=== PATIENT | male | born 1955 | race Caucasian/White ===

== ENCOUNTER 2020-12-21 16:53 | Emergency (ER) | payer MEDICARE, SELFPAY ==
[2020-12-21 16:58] VITALS: BP 126/77; PULSE 72; RESP 18; TEMP 36.9; O2SAT 87; BMI 58.5
[2020-12-21 17:00] VITALS: O2SAT 96
--- NOTE | 2020-12-21 17:44 | EKG12_ITS ---
Test Reason : Blood Pressure : / mmHG Vent. Rate : 068 BPM Atrial Rate : 077 BPM P-R Int : 000 ms QRS Dur : 086 ms QT Int : 384 ms P-R-T Axes : 000 038 083 degrees QTc Int : 408 ms Ectopic atrial rhythm Abnormal ECG Confirmed by ADALI RANDALL, GAMALIEL ([id number]), image editor BLU BENAVIDEZ ([id number]) on 12/23/2020 9:48:26 AM Referred By: MARC Confirmed By:GAMALIEL BRO MD
[2020-12-21 18:04] LABS: Basophil# 0.07 X10^3/uL; Basophil% 0.6 % (0-1); Eosinophil# 0.17 X10^3/uL; Eosinophils% 1.5 % (0-5); Hematocrit 38.6 % (40-54); Hemoglobin 11.6 g/dL (13.0-16.5); Lymphocyte % 7.1 % (19-41); Mean Corp Hgb Conc 30.1 g/dL (32-36); Mean Corpuscular Hgb 27.5 pg (27.0-32.0); Mean Corpuscular Volume 91.5 fL (80-94); Mean Platelet Vol. 8.7 fl (6.2-12.0); Monocyte# 0.88 X10^3/uL; Monocyte% 7.9 % (0-10); NRBC Flagged by Analyzer 0.3 % (0-5); Neutrophil # 9.03 X10^3/uL (2.7-7.7); Neutrophil % 80.6 % (47-70); Platelet Count 172 K/mm3 (150-450); RBC Distribution Width CV 15.6 % (11.6-14.6); Red Blood Count 4.22 M/mm3 (4.6-6.2); White Blood Count 11.2 K/mm3 (4.4-11.0)
--- NOTE | 2020-12-21 18:13 | CT_ITS ---
STUDY: CT ABDOMEN AND PELVIS WITHOUT CONTRAST REASON FOR EXAM: Male, 65 years old. abd pain RADIATION DOSAGE (If Supplied By Facility): CTDIvol = ( 34.45 ) mGy, DLP = ( 1919.58 ) mGycm TECHNIQUE: Transaxial images were obtained from the dome of the diaphragm to the symphysis pubis without oral contrast, and without intravenous contrast. Sagittal and coronal images were reconstructed. Individualized dose optimization techniques were used for this CT. COMPARISON: None. FINDINGS: Small bilateral pleural effusions. Calcific coronary artery disease. Normal liver. Normal gallbladder and extrahepatic biliary system. Normal spleen. Normal pancreas. Normal bilateral adrenal glands. Double-J ureteral stent present on the right extending from the renal pelvis to the bladder. Mild if any hydronephrosis. Normal left kidney. Normal visualized stomach. Air-fluid levels in the small large bowel. Increased stool throughout the colon. Appendix appears normal. Normal abdominal aorta. Normal inferior vena cava. Borderline nonspecific retroperitoneal lymph nodes are noted measuring up to 13 mm Bladder is decompressed with BYRD catheter. Small amount of free fluid in the pelvis. Fat-containing umbilical hernia. Normal osseous structures. CT/Abdomen/Pelvis without Cont IMPRESSION: Double-J ureteral stent present on the right with mild if any hydronephrosis. No radiodense uroliths. Borderline nonspecific retroperitoneal lymphadenopathy. Ileus. Increased stool. Electronically Signed: Edson Taylor MD at 19:34 EDT , Service support ,
[2020-12-21 18:22] LABS: ALB/GLOB Ratio 0.6 RATIO (0.9-2.4); AST(SGOT) 18 U/L (15-37); Alanine Aminotransfer ALT/SGPT 19 U/L (16-61); Albumin, Serum 2.8 g/dL (3.2-5.0); Alkaline Phosphatase 127 U/L (45-117); Anion Gap 4 (5-15); BUN 35 mg/dL (7-18); BUN/Creat Ratio 14.5 RATIO (10-20); Calcium,Total 7.9 mg/dL (8.5-10.1); Chloride 105 mmol/L (98-107); Creatinine, Serum 2.42 mg/dL (0.70-1.30); EST Glomerular Filtration Rate 29 mL/min (>60); Est Glom Filt Rate - Afr Amer 35 mL/min (>60); Estimated Creatinine Clearance 29.83 ml/min; Globulin 4.4 g/dL (2.2-4.2); Glucose 77 mg/dL (74-106); Lipase 67 U/L (73-393); Potassium 4.8 mmol/L (3.5-5.1); Protein, Total 7.2 g/dL (6.4-8.2); Sodium Level 137 mmol/L (136-145); Troponin-I HS 62.5 pg/mL (3.0-78.5)
[2020-12-21 18:59] LABS: Bacteria 0 SEEN /hpf (None Seen); Mucous, Urine 0 SEEN /hpf (<or=2+); Red Blood Cells-Urine 0 SEEN /hpf (0-5)
--- NOTE | 2020-12-21 19:00 | EDS_ITS ---
HPI HPI - GI History of Present Illness Chief Complaint: Abd Pain Informant: patient Narrative Narrative: Patient is a 65-year-old male with history of chronic O2 dependency, diabetes mellitus, hypertension and hyperlipidemia presenting with abdominal discomfort. Patient states he was admitted to [facility] [place] on Sunday for urinary tract infection, 4 days ago. Patient states he chronically self caths and was not able to self cath. A Carcamo was placed at that time. He was discharged 2 days later on Sunday. He notes was in the hospital he was having some constipation but they were giving him some type of laxative. He notes since he was discharged on Sunday he is not had a bowel movement. He notes he has been passing gas. He states his abdomen feels backed up and bloated. He denies any pain. He does have a history of umbilical hernia but he is never had surgery. He denies any nausea or vomiting. Denies any fever or chills. Is continued to have drainage from his Carcamo catheter. Is on antibiotics he does not recall what they are. No other complaints at this time. Prior similar symptoms: No PFSH PFSH Medical History Anxiety Arthritis COPD (chronic obstructive pulmonary disease) Diabetes Former smoker GERD (gastroesophageal reflux disease) Hyperlipidemia Hypertension Migraines Myocardial infarct On home oxygen therapy Seizures Home Medications diazepam [Valium] 5 mg PO BID 12/21/20 [History Last Taken Unknown] ezetimibe [Zetia] 10 mg PO BID 12/21/20 [History Last Taken Unknown] furosemide [Lasix] 80 mg PO BID 12/21/20 [History Last Taken Unknown] gabapentin [Gralise] 1,800 mg PO BID 12/21/20 [History Last Taken Unknown] insulin glargine U-300 conc [Toujeo Max U-300 SoloStar] 70 unit SUBCUT QHS 12/21/20 [History Last Taken Unknown] insulin lispro [Humalog KwikPen Insulin] See Protocol SUBCUT TID 12/21/20 [History Last Taken Unknown] metoprolol succinate 25 mg PO DAILY 12/21/20 [History Last Taken Unknown] rosuvastatin 20 mg PO QHS 12/21/20 [History Last Taken Unknown] sulfamethoxazole-trimethoprim [Bactrim DS] 1 tab PO DAILY 12/21/20 [History Last Taken Unknown] Allergy/AdvReac Type Severity Reaction Status Date / Time diphenhydramine Allergy Other Verified 12/21/20 16:57 [From Benadryl] Surgical History History of coronary artery stent placement History of total left knee replacement (TKR) Hx of CABG Social History Smoking Status: Former smoker ROS ROS ED Constitutional Constitutional ED: Denies chills or fever(s) ENT ENT ED: Denies rhinorrhea or sore throat Cardiovascular Cardiovascular: Denies chest pain or palpitations Respiratory/Chest Respiratory/Chest: Denies cough or dyspnea Gastrointestinal Gastrointestinal: Reports abdominal pain and constipation; Denies nausea or vomiting Genitourinary Genitourinary ED: Reports other Details: Carcamo catheter in place ; Denies dysuria or hematuria Musculoskeletal Musculoskeletal: Denies arthralgias or myalgias Integumentary Denies rash Neurologic Neurologic: Denies headache(s) or weakness Psychiatric Psychiatric: Denies anxiety or depression EXAM Physical Exam Const Vital Signs: 12/21/20 16:58 12/21/20 17:00 12/21/20 20:57 Temperature 98.4 F Temperature Source Temporal Pulse Rate 72 90 Respiratory Rate 18 23 H Blood Pressure 126/77 H 146/72 H Blood Pressure Mean 93 Pulse Ox 87 96 95 Oxygen Delivery Method Room Air Nasal Cannula Oxygen Flow Rate (L/min) 3 Positive well nourished, well developed and obese General Appearance ED: well developed Nutritional Appearance: obese HEENT Reports moist mucous membranes normocephalic and atraumatic Eyes PERRL and EOMs intact bilaterally Neck supple and no JVD Resp normal respiratory effort and clear to auscultation bilaterally Cardio regular rate, regular rhythm and no murmurs GI GI Narrative: Protuberant abdomen Auscultation: hypoactive bowel sounds Palpation: soft and hernia umbilical (Soft, easily reducible, nontender, no overriding erythema); Negative for tender, guarding or rigid Back/Spine no CVA tenderness Extremity full ROM General Extremety ED: Negative for edema or tenderness General Extremity: Negative for edema Neuro moves all extremities Sensorium / Orientation: alert Psych mental status grossly normal and thought process normal Skin no wounds Rashes: no rashes MDM MDM MDM Narrative Medical decision making narrative: Patient is evaluated for abdominal discomfort and constipation. He appears nontoxic and in no acute distress. He is hemodynamically stable. Patient was just discharged from [facility] [place] for acute kidney injury secondary to acute urinary retention. A Carcamo catheter was placed at this time and patient is currently on Bactrim. Chart review shows the patient was discharged with a creatinine of 2.3. Patient is continue to have drainage from his Carcamo catheter is not having any significant pain. Patient is a very mild leukocytosis of 11.2. No other significant laboratory abnormalities. His urinalysis does show 500 leukoesterase and 5-10 white blood cells however no bacteria. I suspect this is residual from his recent UTI. I do not think his abdominal discomfort is any type of referred cardiac pain. His high sensitive troponin is in the normal range for age and is not have any acute EKG changes. CT of the abdomen pelvis obtained to rule out obstruction. This is consistent with an ileus. Patient does not have any abdominal pain, nausea or vomiting I think this can be treated conservatively at home. He is counseled on clear liquid diet as well as bowel rest and outpatient follow-up. He is given referral to Dr. Gar, surgery on-call. Patient is given very strict return precautions including nausea, vomiting, fever, worsening abdominal pain or if he does not have passage of flatus or bowel movement in the next few days. CT does show patient has a ureteral stent in place. He is encouraged to follow-up with his urologist for this. Lab Data Labs: Laboratory Results - last 24 hr 12/21/20 12/21/20 12/21/20 18:00 18:00 18:54 WBC 11.2 H RBC 4.22 L Hgb 11.6 L Hct 38.6 L MCV 91.5 MCH 27.5 MCHC 30.1 L RDW Std Deviation 52.0 H RDW Coeff of Samuel 15.6 H Plt Count 172 MPV 8.7 Immature Gran % (Auto) 2.300 H Neut % (Auto) 80.6 H Lymph % (Auto) 7.1 L Cannon % (Auto) 7.9 Eos % (Auto) 1.5 Baso % (Auto) 0.6 Absolute Neuts (auto) 9.0 H Absolute Lymphs (auto) 0.80 L Nucleated RBC % 0.3 Sodium 137 Potassium 4.8 Chloride 105 Carbon Dioxide 28.0 Anion Gap 4 L BUN 35 H Creatinine 2.42 H Estim Creat Clear Calc 29.83 Est GFR (MDRD) Af Amer 35 L Est GFR (MDRD) Non-Af 29 L BUN/Creatinine Ratio 14.5 Glucose 77 Calcium 7.9 L Total Bilirubin 0.30 AST 18 ALT 19 Alkaline Phosphatase 127 H Troponin I High Sens 62.5 Total Protein 7.2 Albumin 2.8 L Globulin 4.4 H Albumin/Globulin Ratio 0.6 L Lipase 67 L Urine Color Yellow Urine Clarity Clear Urine pH 6.0 Ur Specific [place] 1.010 Urine Protein 30 H Urine Glucose (UA) Normal Urine Ketones Negative Urine Occult Blood 150 H Urine Nitrite Negative Urine Bilirubin Negative Urine Urobilinogen Normal Ur Leukocyte Esterase 500 H Urine RBC 0 SEEN Urine WBC 5-10 SEEN Ur Squamous Epith Cells 0-5 SEEN Urine Bacteria 0 SEEN Urine Mucus 0 SEEN Radiography Diagnostic Testing: Radiology Impression Abdomen/Pelvis CT 12/21/20 18:13 IMPRESSION: Double-J ureteral stent present on the right with mild if any hydronephrosis. No radiodense uroliths. Borderline nonspecific retroperitoneal lymphadenopathy. Ileus. Increased stool. Electronically Signed: Edson Taylor MD at 19:34 EDT , Service support , Rhythm Strip Rhythm Strip: Sinus Rhythm Rate: 68 Ectopy: None EKG Initial EKG: Attestation: I personally reviewed and interpreted this EKG as follows: Comments: Sinus rhythm rate of 68 with prolonged FL interval Normal axis Normal QRS and QTc Normal ST segments Discharge Plan Triage Chief Complaint: Abd Pain ED Provider: Geraldine Charles Dx/Rx/DC Orders Clinical Impression: Ileus Instructions: Ileus, ED Clear Liquid Diet Prescriptions: No Action sulfamethoxazole-trimethoprim [Bactrim DS] 800-160 mg tablet 1 tab PO DAILY RF: 0 furosemide [Lasix] 80 mg tablet 80 mg PO BID RF: 0 metoprolol succinate 25 mg tablet extended release 24 hr 25 mg PO DAILY RF: 0 diazepam [Valium] 5 mg tablet 5 mg PO BID RF: 0 insulin lispro [Humalog KwikPen Insulin] 100 unit/mL insulin pen See Protocol unit SUBCUT TID RF: 0 ezetimibe [Zetia] 10 mg tablet 10 mg PO BID RF: 0 rosuvastatin 20 mg tablet 20 mg PO QHS RF: 0 Gralise 600 mg tablet extended release 24 hr 1,800 mg PO BID RF: 0 Toujeo Max U-300 SoloStar 300 unit/mL (3 mL) insulin pen 70 unit SUBCUT QHS RF: 0 Primary Care Provider: Dylon Correa Referrals: Jeff Gar MD [STAFF PHYSICIAN] - Dylon Correa MD [Primary Care Provider] - Activity Restrictions/Additional Instructions: Your bowels are moving slowly which is what is causing you to be constipated. You need to rest them by eating less and only eating clear liquids. If you have not started passing gas in the next few days or having bowel movements please return to the emergency room. If you develop any vomiting please return to the emergency room. You have stents in your bladder/kidney that need to be evaluated by your urologist. Disposition Disposition: Home, Self Care Discharge Date/Time: 12/21/20 20:58
[2020-12-21 19:01] LABS: Color, Urine Yellow (Yellow); Glucose, Dipstick Normal (Normal); Ketone-Dipstick Negative (Negative); Leukocyte Esterase-Dipstick 500 /ul (Negative); Nitrite-Dipstick Negative (Negative); Occult Blood-Urine 150 /ul (Negative); Protein-Dipstick 30 mg/dl (Negative); Urine Bilirubin Dipstick Negative (Negative); Urine Clarity Clear (Clear); Urine Urobilinogen Normal (Normal)
[2020-12-21 19:41] LABS: White Blood Cells 5-10 SEEN /hpf (0-5)
[2020-12-21 19:42] LABS: Squamous Epithelial Cells - UA 0-5 SEEN /hpf (0-5)
[2020-12-21 20:57] VITALS: BP 146/72; PULSE 90; RESP 23; O2SAT 95
== END 2020-12-21 20:58 | disposition home or self-care (01) ==
PROVIDERS: Emergency Provider Emergency Medicine; PCP Family Medicine
DX: K56.7 Ileus, unspecified (principal); N39.0 Urinary tract infection, site not specified; E11.9 Type 2 diabetes mellitus without complications; J44.9 Chronic obstructive pulmonary disease, unspecified; I10 Essential (primary) hypertension; E78.5 Hyperlipidemia, unspecified; R56.9 Unspecified convulsions; M19.90 Unspecified osteoarthritis, unspecified site; K21.9 Gastro-esophageal reflux disease without esophagitis; F41.9 Anxiety disorder, unspecified; Z99.81 Dependence on supplemental oxygen; Z79.4 Long term (current) use of insulin; Z79.899 Other long term (current) drug therapy; I25.2 Old myocardial infarction; Z87.891 Personal history of nicotine dependence; Z95.1 Presence of aortocoronary bypass graft; Z95.5 Presence of coronary angioplasty implant and graft
CPT/HCPCS: 74176; 80053; 81001; 83690; 84484; 85025; 93005; 99283; A4216

== ENCOUNTER → 2021-02-04 15:24 | Outpatient (CLI) | payer MEDICARE, SELFPAY ==
--- NOTE | 2021-02-04 16:00 | MRI_ITS ---
STUDY: MRI BRAIN WITH AND WITHOUT CONTRAST REASON FOR EXAM: Male, 65 years old. Asymmetric hearing loss TECHNIQUE: Standardized multiplanar fat and water weighted pulse sequences were obtained. IV 30 cc DOTAREM was administered for the contrast portion of the examination. 3D FIESTA, thin slice T2 weighted images through the internal auditory canals are created. Coronal T2-weighted images through the internal auditory canals are created. Additional postcontrast enhanced smaller [id number] axial and coronal images through the internal auditory canals is also created. COMPARISON: Prior brain MRI dated 07/12/2015 FINDINGS: T2-weighted images of the entire brain show a few, scattered periventricular white matter areas of slightly T2 signal. There is no associated restricted diffusion. Ventricles and CSF spaces are symmetric and normal in size without midline shift or mass effect. There are normal T2 flow voids in the major intracranial vessels. Sagittal T1 images show normal midline anatomy. High-resolution T2-weighted images through the internal auditory canal show no abnormal thickening of the 7th and 8th cranial nerves. Bilateral trigeminal nerves are normal in appearance. There is no cerebellar pontine angle mass lesion. Post contrast enhanced images show no abnormal enhancement within the internal auditory canals. The semicircular canals and cochlea are normal in appearance. Large [id number], postcontrast enhanced images of the entire brain show no disruption of the blood brain barrier. There is no abnormal leptomeningeal enhancement. Paranasal sinuses and mastoid air cells are normally aerated without fluid signal. Intracranial soft tissues included in the field of view including the orbits are within normal limits. MRI/Brain W/WO Contrast IMPRESSION: Normal MRI internal auditory canals. Scattered T2 and FLAIR bright periventricular white matter lesions unchanged compared to prior exam likely representing chronic small vessel ischemic changes. Electronically Signed: Lex Huff DO at 22:27 EDT Tel , Service support ,
[2021-02-04 16:06] LABS: CREATININE FINGERSTICK 2.2 mg/dL (0.70-1.30)
== END ==
PROVIDERS: PCP Family Medicine; Referring Provider Otolaryngology; Visit Provider Otolaryngology
DX: Z01.812 Encounter for preprocedural laboratory examination (principal); H91.90 Unspecified hearing loss, unspecified ear
CPT/HCPCS: 70553; A9575

== ENCOUNTER 2022-10-05 18:32 | Outpatient (RCR) | payer MEDICARE, SELFPAY ==
[2022-10-05 18:41] LABS: Color, Urine Yellow (Yellow); Glucose, Dipstick Normal (Normal); Ketone-Dipstick 5 mg/dl (Negative); Leukocyte Esterase-Dipstick 500 /ul (Negative); Nitrite-Dipstick Negative (Negative); Occult Blood-Urine 250 /ul (Negative); Protein-Dipstick 100 mg/dl (Negative); Urine Bilirubin Dipstick Negative (Negative); Urine Clarity Cloudy (Clear); Urine Urobilinogen 1 mg/dl (Normal)
== END 2022-10-25 23:59 ==
LOC: HHLAB 18:32
PROVIDERS: PCP Family Medicine
DX: Z00.00 Encounter for general adult medical examination without abnormal findings (principal)
CPT/HCPCS: 81002; 87077; 87086; 87088; 87186

== ENCOUNTER 2024-09-08 15:22 | Inpatient (IN) | payer MEDICARE, MEDICAID, SELFPAY ==
[2024-09-08] VITALS (10 sets, daily range): BP systolic 90–125; BP diastolic 53–83; PULSE 110–122; RESP 14–20; TEMP 37.2–38.1; O2SAT 91–100; BMI 49.4; BMI 48.5
--- NOTE | 2024-09-08 15:31 | EX.ED.DYSGE1 ---
HPI History of Present Illness Chief Complaint: Seizure Informant: patient and SNF Onset/Context/Timing Onset: Today Context: Sudden Onset Timing: Continuous Quality: Shaking, twitching Location: Bilateral hands Worsened by: Nothing Relieved by: Nothing Narrative Narrative: Patient presents with a seizure-like activity that occurred today. [facility] where they noted he had generalized shaking and seizure-like activity. They reported that after the seizure-like activity stopped, he started having twitching of his hands. Patient was still somewhat confused on examination. Patient is oriented to person and place. Patient is confused on the year and month. Patient denies any fevers or chills. Patient denies any headaches. [facility] Medical History (Updated 09/08/24 @ 19:[address] Stanislaw Mohamud, DO) KARLA treated with BiPAP A-fib Hypothyroid Epilepsy CHF (congestive heart failure) Metabolic encephalopathy Kidney failure Kidney disease Anxiety Diabetes Arthritis GERD (gastroesophageal reflux disease) Former smoker On home oxygen therapy COPD (chronic obstructive pulmonary disease) Myocardial infarct Hyperlipidemia Hypertension Migraines Seizures Home Medications ?Medication ?Instructions ?Recorded ?Last Taken ?Type ezetimibe 10 mg tablet (Zetia) 10 mg PO BID 12/21/20 Unknown History furosemide 80 mg tablet (Lasix) 80 mg PO BID 12/21/20 Unknown History insulin glargine U-300 conc 300 100 unit subcut QHS 12/21/20 Unknown History unit/mL (3 mL) subcutaneous pen (Toujeo Max U-300 SoloStar) insulin lispro 100 unit/mL See Protocol subcut TID 12/21/20 Unknown History subcutaneous pen (Humalog KwikPen (U-100) Insulin) metoprolol succinate 25 mg 25 mg PO DAILY 12/21/20 Unknown History tablet,extended release 24 hr atorvastatin 40 mg tablet 40 mg PO QHS 09/08/24 Unknown History cholecalciferol (vitamin D3) 125 125 mcg PO QWEEK 09/08/24 Unknown History mcg (5,000 unit) tablet (Vitamin D3) duloxetine 60 mg capsule,delayed 60 mg PO DAILY 09/08/24 Unknown History release (Cymbalta) exenatide microspheres 2 mg/0.85 2 mg subcut .q wed 09/08/24 Unknown History mL subcutaneous auto-injector (Meryl Wallis) gabapentin 300 mg capsule 900 mg PO BID 09/08/24 Unknown History hydrocodone-acetaminophen 5-325mg 1 tab PO Q6H PRN pain 09/08/24 Unknown History 5mg-325mg levothyroxine 25 mcg tablet 25 mcg PO DAILY 09/08/24 Unknown History lorazepam 0.5 mg tablet (Ativan) 0.5 mg PO Q6H PRN anxiety 09/08/24 Unknown History lubiprostone 8 mcg capsule 8 mcg PO DAILY 09/08/24 Unknown History (Amitiza) metoprolol succinate 100 mg 100 mg PO BID 09/08/24 Unknown History tablet,extended release 24 hr midodrine 5 mg tablet 5 mg PO TID 09/08/24 Unknown History pantoprazole 40 mg tablet,delayed 40 mg PO DAILY 09/08/24 Unknown History release polyethylene glycol 3350 17 17 g PO DAILY 09/08/24 Unknown History gram/dose oral powder (Miralax) tramadol 50 mg tablet 50 mg PO Q8H PRN pain 09/08/24 Unknown History trazodone 150 mg tablet 75 mg PO QHS 09/08/24 Unknown History Allergy/AdvReac Type Severity Reaction Status Date / Time diphenhydramine (From Allergy Other Verified 09/08/24 15:25 Benadryl) Family History Father Diabetes Son Leukemia Mother Cancer Surgical History History of total left knee replacement (TKR) History of coronary artery stent placement Hx of CABG Social History household members: none housing: [facility] Smoking Status: Former smoker alcohol intake: current alcohol intake frequency: holidays/special occasions only substance use type: does not use ROS ROS ED Constitutional Constitutional ED: Denies chills or fever(s) Eyes Eyes: Denies blurry vision or change in vision ENT ENT ED: Denies rhinorrhea or sore throat Cardiovascular Cardiovascular: Denies chest pain or palpitations Respiratory/Chest Respiratory/Chest: Denies cough or dyspnea Gastrointestinal Gastrointestinal: Denies nausea or vomiting Genitourinary Genitourinary ED: Denies dysuria or hematuria Musculoskeletal Musculoskeletal: Denies back pain or neck pain Integumentary Denies abscess or rash Neurologic Neurologic: Denies headache(s) or weakness Allergic/Immunologic Allergic/Immunologic ED: Denies mouth swelling or urticaria EXAM Physical Exam Const Vital Signs: 09/08/24 15:25 09/08/24 15:30 09/08/24 15:52 Temperature 99.4 F H 99.2 F H Temperature Source Oral Oral Pulse Rate 117 H 118 H Respiratory Rate 20 H 20 H Blood Pressure 97/57 L 90/58 L Blood Pressure Mean 70 68 Pulse Ox 98 100 100 Oxygen Delivery Method Room Air Nasal Cannula Nasal Cannula Oxygen Flow Rate (L/min) 2 2 09/08/24 16:30 09/08/24 17:00 09/08/24 18:00 Temperature 99.5 F H 100.5 F H 99.9 F H Temperature Source Oral Oral Oral Pulse Rate 112 H 122 H 110 H Respiratory Rate 20 H 17 18 Blood Pressure 104/68 115/67 108/83 H Blood Pressure Mean 80 83 91 Pulse Ox 100 100 100 Oxygen Delivery Method Nasal Cannula Room Air Room Air Oxygen Flow Rate (L/min) 2 09/08/24 19:03 09/08/24 19:16 Temperature 100.1 F H 100.1 F H Temperature Source Oral Pulse Rate 114 H 115 H Respiratory Rate 14 16 Blood Pressure 103/71 107/76 Blood Pressure Mean 81 86 Pulse Ox 91 99 Oxygen Delivery Method Nasal Cannula Oxygen Flow Rate (L/min) 2 Positive well nourished and well developed General Appearance ED: well developed and NAD HEENT Reports moist mucous membranes Neck supple and no JVD Resp normal respiratory effort and clear to auscultation bilaterally Cardio Rate: tachycardic Rhythm: abnormal rhythm irregularly irregular GI non-tender Palpation: soft Neuro CN's II-XII intact bilaterally and no sensory deficits noted Sensorium / Orientation: alert and orientation impaired Motor Exam: strength 5/5 throughout Psych mental status grossly normal MDM MDM MDM Narrative Medical decision making narrative: Differential diagnosis includes intracranial bleeding, intracranial mass, seizure, electrolyte abnormality, urinary tract infection, pneumonia, new onset atrial fibrillation, and cardiac ischemia. EKG will be obtained to assess for cardiac dysrhythmia and cardiac ischemia. CT scan of the brain will be obtained to assess for intracranial bleeding and intracranial mass. Chest x-ray will be obtained to assess for pneumonia or bronchitis. CBC will be obtained to assess for leukocytosis and anemia. Basic metabolic profile will be obtained to assess for electrolyte abnormality and renal function. Urinalysis will be obtained to assess for urinary tract infection and hematuria. PT with INR and PTT will be obtained to assess for coagulopathy. Lab Data Attestation: I reviewed the patient's lab results. Lab results narrative: CBC was reviewed. There is a leukocytosis of 20.8. Hemoglobin was 8.7 and hematocrit was 30.7. Platelets were normal. PT with INR and PTT were reviewed. Pro time was 16.2 and INR is 1.3. PTT was 39.0. Basic metabolic profile was reviewed. BUN was 54 and creatinine was 2.39. Glucose was mildly elevated at 170. Initial high-sensitivity troponin was reviewed and was slightly elevated at 46. Urinalysis was reviewed. Leukocyte esterase is 500 with greater than 100 white blood cells. There is 2+ bacteria. Occult blood was 250 with 25-50 red blood cells. 2-hour repeat high-sensitivity troponin was reviewed and was 45. Serum lactate was reviewed and was 1.1. Labs: Laboratory Results - last 24 hr 09/08/24 09/08/24 09/08/24 15:52 16:05 17:59 WBC 20.8 H RBC 3.81 L Hgb 8.7 L Hct 30.7 L MCV 80.6 MCH 22.8 L MCHC 28.3 L RDW Std Deviation 57.4 H RDW Coeff of Samuel 19.5 H Plt Count 202 MPV 9.1 Immature Gran % (Auto) 0.600 Neut % (Auto) 86.6 H Lymph % (Auto) 3.5 L [place] % (Auto) 7.8 Eos % (Auto) 1.3 Baso % (Auto) 0.2 Absolute Neuts (auto) 18.0 H Absolute Lymphs (auto) 0.72 L Nucleated RBC % 0 PT 16.2 H INR 1.3 APTT 39.0 H Sodium 136 Potassium 4.7 Chloride 96 L Carbon Dioxide 30.7 Anion Gap 10 BUN 54 H Creatinine 2.39 H Estim Creat Clear Calc 41.86 L Est GFR (MDRD) Non-Af 29 L BUN/Creatinine Ratio 22.6 H Glucose 170 H Lactic Acid 1.1 Calcium 8.4 Troponin T High Sens 46 H Troponin T Hi Sens 2 Hr 45 H Urine Color Yellow Urine Clarity Cloudy Urine pH 6.5 Ur Specific [place]yer 1.010 Urine Protein 100 H Urine Glucose (UA) Normal Urine Ketones Negative Urine Occult Blood 250 H Urine Nitrite Negative Urine Bilirubin Negative Urine Urobilinogen Normal Ur Leukocyte Esterase 500 H Urine RBC 25-50 SEEN Urine WBC >100 SEEN Ur Squamous Epith Cells 0-5 SEEN Ur Renal Epithelial Cell 0-5 SEEN Urine Bacteria 2+ Urine Mucus 0 SEEN ABG Data Attestation: I personally reviewed and interpreted this ABG as follows: Interpretation: Arterial blood gas shows a pH of 7.41, PCO2 was 52.8, PO2 was 82, and HCO3 was 33.3. ABG results: ABG 09/08/24 16:18 Specimen Type ART Sample Site Not entered pH 7.41 Bicarbonate Actual 33.3 H Total CO2 35 Base Excess 9 H O2 Saturation 96 O2 % 2.0 ABG pCO2 52.8 H ABG pO2 82 O2 Delivery Device Cannula Vent Mode Not entered Radiography Chest X-Ray - ED: 2 View, Read by ED Physician, Read by Radiologist and No Acute Disease Diagnostic Testing: Clinical Impression(s) from Imaging Studies Brain CT 09/08/24 15:50 IMPRESSION: NO ACUTE FINDINGS Reading Location: [facility] Chest X-Ray 09/08/24 16:30 IMPRESSION: Left lower lobe atelectasis or pneumonia. Reading Location: [id number] CT scan of the brain was obtained. There is no acute intracranial abnormality. This was interpreted by the radiologist and was also independently reviewed by myself. PA and lateral chest x-ray was obtained. There are 2 views. On my independent interpretation, lung rojas show left lower lobe atelectasis or infiltrate. There is normal cardiac silhouette. Bony thorax is normal. Radiologist also interpreted the x-ray and agrees. EKG Initial EKG: Attestation: I personally reviewed and interpreted this EKG as follows: Interpretation: No Acute Injury Pattern and Atrial Fibrillation (112) Comments: EKG was obtained. On my independent interpretation, it showed atrial fibrillation with a rate of 112. QRS interval was normal at 86 ms. QTc interval was normal at 354 ms. [place] was normal. There are no acute ST or T wave changes noted. Prior EKG tracings: available for review Prior: Unchanged (12/21/2020) Treatment and Re-Evaluation :: Patient was given IV fluids. Patient was given Tylenol. Patient was given a dose of Rocephin. Case was discussed with the hospitalist. She will admit the patient to her service. Patient and daughter understood and were agreeable with the plan. All questions were answered. Discharge Plan Triage Chief Complaint: Seizure ED Provider: Stanislaw Mohamud Dx/Rx/DC Orders Clinical Impression: Acute kidney injury, UTI (urinary tract infection), Elevated troponin Prescriptions: No Action furosemide [Lasix] 80 mg tablet 80 mg PO BID Patient Comments: take 1 tablet by mouth twice a day metoprolol succinate 25 mg tablet extended release 24 hr 25 mg PO DAILY Patient Comments: take 1 tablet by mouth every morning insulin lispro [Humalog KwikPen Insulin] 100 unit/mL insulin pen See Protocol SUBCUT TID Protocol: 1. Sliding Scale Insulin Low Dosing Condition: 150-224 mg/dl = 1 unit Condition: 225-299 mg/dl = 2 units Condition: 300-374 mg/dl = 3 units Condition: 375-499 mg/dl = 4 units Condition: Greater than 449 call physician Protocol Text: - Use for Total Daily Dose of Insulin 15-27 units - Thin, elderly, renal patients LOW DOSING ALGORITHM Patient Comments: inject 16 to 26 units subcutaneously three times a day before meals ACCORDING TO SLIDING SCALE ezetimibe [Zetia] 10 mg tablet 10 mg PO BID Patient Comments: take 1 tablet by mouth at bedtime insulin glargine U-300 conc [Toujeo Max U-300 SoloStar] 300 unit/mL (3 mL) insulin pen 100 unit SUBCUT QHS atorvastatin 40 mg tablet 40 mg PO QHS Bydureon BCise 2 mg/0.85 mL auto-injector 2 mg subcut .q wed duloxetine [Cymbalta] 60 mg capsule,delayed release(DR/EC) 60 mg PO DAILY gabapentin 300 mg capsule 900 mg PO BID hydrocodone-acetaminophen 5-325 mg tablet 1 tab PO Q6H PRN (Reason: pain) levothyroxine 25 mcg tablet 25 mcg PO DAILY lorazepam [Ativan] 0.5 mg tablet 0.5 mg PO Q6H PRN (Reason: anxiety) lubiprostone [Amitiza] 8 mcg capsule 8 mcg PO DAILY metoprolol succinate 100 mg tablet extended release 24 hr 100 mg PO BID midodrine 5 mg tablet 5 mg PO TID Rx Instructions: do not give last dose of day after 6PM or within 4 hrs of bedtime pantoprazole 40 mg tablet,delayed release (DR/EC) 40 mg PO DAILY polyethylene glycol 3350 [Miralax] 17 gram/dose powder 17 g PO DAILY tramadol 50 mg tablet 50 mg PO Q8H PRN (Reason: pain) trazodone 150 mg tablet 75 mg PO QHS cholecalciferol (vitamin D3) [Vitamin D3] 125 mcg (5,000 unit) tablet 125 mcg PO QWEEK Primary Care Provider: Frank Rai Referrals: Frank Rai DO [Primary Care Provider] - Print Language: [place] Citizen Disposition Disposition: Acute Care Hospital [facility]
--- NOTE | 2024-09-08 15:50 | EKG12_ITS ---
Test Reason : ALT LOC Blood Pressure : */* mmHG Vent. Rate : 112 BPM Atrial Rate : * BPM P-R Int : * ms QRS Dur : 86 ms QT Int : 260 ms P-R-T Axes : * 67 18 degrees QTcB Int : 354 ms Atrial fibrillation with rapid ventricular response Abnormal ECG Confirmed by Lex Burch ([id number]), digital editor BLU BENAVIDEZ ([id number]) on 09/09/2024 11:30:41 AM Referred By: Confirmed By: Lex Burch
--- NOTE | 2024-09-08 15:50 | CT_ITS ---
PROCEDURE: BRAIN/HEAD WITHOUT CONTRAST 09/08/2024 REASON FOR EXAM: SEIZURE TECHNIQUE: Head CT without intravenous contrast. Coronal and Sagittal reconstruction series were provided. One or more dose reduction techniques were used (e.g., Automated exposure control, adjustment of the mA and/or kV according to patient size, use of iterative reconstruction technique. RADIATION DOSE SUMMARY: CTDlvol: 45 mGy DLP: 846 mGycm COMPARISON: None FINDINGS: Brain: Within normal limits for age CSF Spaces: Mild generalized cerebral atrophy Sinuses/Mastoids: Clear at visualized levels Bones: Unremarkable CT/Brain/Head without Contrast IMPRESSION: NO ACUTE FINDINGS Reading Location: [facility]
[2024-09-08] MEDS: 0.9% Normal Saline (1000mL) 1,000 ML 1000 ML IV (16:00)
[2024-09-08 16:08] LABS: Absolute Lymphocyte Count 0.72 X10^3/uL (0.83-4.51); Basophil# 0.05 X10^3/uL; Basophil% 0.2 % (0-1); Eosinophil# 0.26 X10^3/uL; Eosinophils% 1.3 % (0-5); Hematocrit 30.7 % (40-54); Hemoglobin 8.7 g/dL (13.0-16.5); Lymphocyte # 0.72 X10^3/ul (0.83-4.51); Lymphocyte % 3.5 % (19-41); Mean Corp Hgb Conc 28.3 g/dL (32-36); Mean Corpuscular Hgb 22.8 pg (27.0-32.0); Mean Corpuscular Volume 80.6 fL (80-94); Mean Platelet Vol. 9.1 fl (6.2-12.0); Monocyte# 1.62 X10^3/uL; Monocyte% 7.8 % (0-10); NRBC Flagged by Analyzer 0 % (0-5); Neutrophil # 17.97 X10^3/uL (2.7-7.7); Neutrophil % 86.6 % (47-70); POSITIVE DIFFERENTIAL YES; Platelet Count 202 K/mm3 (150-450); RBC Distribution Width CV 19.5 % (11.6-14.6); RBC Distribution Width SD 57.4 fl (35.1-43.9); Red Blood Count 3.81 M/mm3 (4.6-6.2); White Blood Count 20.8 K/mm3 (4.4-11.0)
[2024-09-08 16:11] LABS: Mucous, Urine 0 SEEN /hpf (<or=2+)
[2024-09-08 16:21] LABS: Base Excess 9 mmol/L (-2 to +2); Bicarbonate 33.3 mmol/L (22-26); Blood Gas Specimen Type ART; Mode Not entered; O2 Delivery Device Cannula; PO2 82 mmHG (75-100); SITE Not entered; SO2 96 % (95-99); Total Carbon Dioxide 35 mmol/L; pCO2 52.8 mmHg (35-45); pH 7.41 (7.35-7.45)
[2024-09-08 16:22] LABS: Color, Urine Yellow (Yellow); Glucose, Dipstick Normal (Normal); Ketone-Dipstick Negative (Negative); Leukocyte Esterase-Dipstick 500 /ul (Negative); Nitrite-Dipstick Negative (Negative); Occult Blood-Urine 250 /ul (Negative); Protein-Dipstick 100 mg/dl (Negative); Urine Bilirubin Dipstick Negative (Negative); Urine Clarity Cloudy (Clear); Urine Urobilinogen Normal (Normal); Urine pH 6.5 (5.0 - 8.0)
--- NOTE | 2024-09-08 16:30 | RAD_ITS ---
PROCEDURE: CHEST PA AND LATERAL 09/08/2024 REASON FOR EXAM: COUGH TECHNIQUE: Frontal and lateral views of the chest. FINDINGS: Hardware: Sternotomy wires are present. Heart: Heart size is moderately enlarged. Mediastinum: The mediastinal contour is unremarkable. Lungs: Alveolar opacity in the lower left lung consistent with left lower lobe atelectasis or pneumonia. Bones: The bones are unremarkable. RAD/Chest PA and Lateral IMPRESSION: Left lower lobe atelectasis or pneumonia. Reading Location: [id number]
[2024-09-08 16:34] LABS: Troponin T High Sensitivity 46 ng/L (<=22)
[2024-09-08 16:35] LABS: Lactic Acid 1.1 mmol/L (0.0-2.0)
[2024-09-08 16:55] LABS: Anion Gap 10 (5-15); BUN 54 mg/dL (4-19); BUN/Creat Ratio 22.6 RATIO (10-20); Calcium,Total 8.4 mg/dL (7.6-11.0); Carbon Dioxide 30.7 mmol/L (21.0-32.0); Chloride 96 mmol/L (98-108); Creatinine, Serum 2.39 mg/dL (0.70-1.20); EST Glomerular Filtration Rate 29 (>60); Estimated Creatinine Clearance 41.86 ml/min (50-250); Glucose 170 mg/dL (70-99); Potassium 4.7 mmol/L (3.3-5.1); Sodium Level 136 mmol/L (133-145)
[2024-09-08] MEDS: Acetaminophen 500 MG Tablet 1000 MG PO (17:29)
[2024-09-08 17:47] LABS: White Blood Cells >100 SEEN /hpf (0-5)
[2024-09-08 17:48] LABS: Red Blood Cells-Urine 25-50 SEEN /hpf (0-5)
[2024-09-08 17:49] LABS: Bacteria 2+ /hpf (None Seen); Squamous Epithelial Cells - UA 0-5 SEEN /hpf (0-5)
[2024-09-08 17:50] LABS: Renal Epithelial Cells 0-5 SEEN /hpf (0-5)
[2024-09-08 18:33] LABS: Troponin T High Sens 2 HR 45 ng/L (<=22)
--- NOTE | 2024-09-08 18:45 | PCM.HP.STD ---
HPI - General General Date of Admission: 09/08/24 Date of Service: 09/08/24 Chief Complaint: Seizure like activity at SNF HPI Narrative The patient is a 69 y/o M w/ PMHx: KARLA on BIPAP q HS, Chronic orthostatic hypotension, Morbid obesity, Hypothyroidism, PAF, Diabetes mellitus type II, COPD w/ chart documented 3L NC chronic usage (currently on RA in the ED, attempting to verify), HTN, HLD, Former tobacco use, GERD, Anxiety and Depression, HF unclear type, CAD s/p PCI and CABG, Chronic indwelling bran catheter with unclear etiology who presents to the [facility] ED on 09/08/24 with history of seizure-like activity occurring at the correction facility on day of presentation with reportedly generalized shaking and seizure-like activity which eventually stopped within twitching of his hands with confusion following which persisted into the ED transition for evaluation. In the ED patient did improve mildly, able to be oriented to person and place but confused still about year and month with no recent illnesses per his report. Workup in the ED included T99.4, heart rate 117, BP 97/57, respiratory rate 20, 98% on room air with Tmax in the ED 100.5 oral, most recent repeat vitals T99.9 Oral, heart rate 110, BP 108/83, respiratory rate 18, 100% room air, CBC and coags pending upon requested evaluation of patient, ABG with pH 7.41, bicarb 33.3, PCO2 52.8, PO2 82% on cannula however this was transient nasal cannula usage and patient eventually transition back to room air, BMP with chloride 96, BUN/creatinine 50/2.39, GFR 29, glucose 170, troponin 46 with repeat delta troponin 45, lactic acid 1.1, urinalysis with cloudy appearing urine, 800 protein, occult blood 250, negative nitrite, leukocyte Estrace 500 with urine RBCs 25-50 and urine WBCs greater than 100 with 2+ urine bacteria, urine culture pending per ED, CT brain with no acute intracranial findings, chest x-ray with left lower lobe atelectasis versus pneumonia, atrial fibrillation without acute evidence of ischemia. In the ED patient ministered 1 L normal saline, Tylenol 1000 mg p.o. x 1, Rocephin 2 g IV x 1. Discussed patient with ER nurse and requested Bran change in the ED as well as ministration of his missed dose of midodrine 5 mg x 1. [facility] Medical History (Updated 09/08/24 @ 19:[address] Amie Piedra MD) KARLA treated with BiPAP A-fib Hypothyroid Epilepsy CHF (congestive heart failure) Metabolic encephalopathy Kidney failure Kidney disease Anxiety Diabetes Arthritis GERD (gastroesophageal reflux disease) Former smoker On home oxygen therapy COPD (chronic obstructive pulmonary disease) Myocardial infarct Hyperlipidemia Hypertension Migraines Seizures Home Medications ?Medication ?Instructions ?Recorded ?Last Taken ?Type ezetimibe 10 mg tablet (Zetia) 10 mg PO BID 12/21/20 Unknown History furosemide 80 mg tablet (Lasix) 80 mg PO BID 12/21/20 Unknown History insulin glargine U-300 conc 300 100 unit subcut QHS 12/21/20 Unknown History unit/mL (3 mL) subcutaneous pen (Toujeo Max U-300 SoloStar) insulin lispro 100 unit/mL See Protocol subcut TID 12/21/20 Unknown History subcutaneous pen (Humalog KwikPen (U-100) Insulin) metoprolol succinate 25 mg 25 mg PO DAILY 12/21/20 Unknown History tablet,extended release 24 hr atorvastatin 40 mg tablet 40 mg PO QHS 09/08/24 Unknown History cholecalciferol (vitamin D3) 125 125 mcg PO QWEEK 09/08/24 Unknown History mcg (5,000 unit) tablet (Vitamin D3) duloxetine 60 mg capsule,delayed 60 mg PO DAILY 09/08/24 Unknown History release (Cymbalta) exenatide microspheres 2 mg/0.85 2 mg subcut .q wed 09/08/24 Unknown History mL subcutaneous auto-injector (Bylarry Wallis) gabapentin 300 mg capsule 900 mg PO BID 09/08/24 Unknown History hydrocodone-acetaminophen 5-325mg 1 tab PO Q6H PRN pain 09/08/24 Unknown History 5mg-325mg levothyroxine 25 mcg tablet 25 mcg PO DAILY 09/08/24 Unknown History lorazepam 0.5 mg tablet (Ativan) 0.5 mg PO Q6H PRN anxiety 09/08/24 Unknown History lubiprostone 8 mcg capsule 8 mcg PO DAILY 09/08/24 Unknown History (Amitiza) metoprolol succinate 100 mg 100 mg PO BID 09/08/24 Unknown History tablet,extended release 24 hr midodrine 5 mg tablet 5 mg PO TID 09/08/24 Unknown History pantoprazole 40 mg tablet,delayed 40 mg PO DAILY 09/08/24 Unknown History release polyethylene glycol 3350 17 17 g PO DAILY 09/08/24 Unknown History gram/dose oral powder (Miralax) tramadol 50 mg tablet 50 mg PO Q8H PRN pain 09/08/24 Unknown History trazodone 150 mg tablet 75 mg PO QHS 09/08/24 Unknown History Allergy/AdvReac Type Severity Reaction Status Date / Time diphenhydramine (From Allergy Other Verified 09/08/24 15:25 Benadryl) Family History Father Diabetes Son Leukemia Mother Cancer Surgical History History of total left knee replacement (TKR) History of coronary artery stent placement Hx of CABG Social History household members: none housing: [facility] Smoking Status: Former smoker alcohol intake: current alcohol intake frequency: holidays/special occasions only substance use type: does not use ROS ROS Narrative Patient to answer some questions but is not appropriate still and not at baseline per discussion with daughter. Review of Systems ROS Unobtainable: due to encephalopathy Vital Signs Vital Signs Vital Signs: 09/08/24 15:25 09/08/24 15:30 09/08/24 15:52 Temperature 99.4 F H 99.2 F H Temperature Source Oral Oral Pulse Rate 117 H 118 H Respiratory Rate 20 H 20 H Blood Pressure 97/57 L 90/58 L Blood Pressure Mean 70 68 Pulse Ox 98 100 100 Oxygen Delivery Method Room Air Nasal Cannula Nasal Cannula Oxygen Flow Rate (L/min) 2 2 09/08/24 16:30 09/08/24 17:00 09/08/24 18:00 Temperature 99.5 F H 100.5 F H 99.9 F H Temperature Source Oral Oral Oral Pulse Rate 112 H 122 H 110 H Respiratory Rate 20 H 17 18 Blood Pressure 104/68 115/67 108/83 H Blood Pressure Mean 80 83 91 Pulse Ox 100 100 100 Oxygen Delivery Method Nasal Cannula Room Air Room Air Oxygen Flow Rate (L/min) 2 Weight Weight: 325 lb 2.909 oz Body Mass Index (BMI) 49.4 Physical Exam Narrative Physical Examination: General: Awake, intermittently alert but not oriented, inappropriately grabbing during evaluation, not answering questions appropriately, not at baseline per discussion with daughter, no overt distress currently and no current seizure activity but still suspect some postictal component as well as potentially encephalopathy with infection. Skin: Normal color, normal turgor, no icterus, no cyanosis except for occasional stage ecchymoses, abrasion, bilateral lower extremity significant venous stasis disease. HEENT: AT/NC, EOMI, PERRLA, dry MM, no carotid bruits, difficult to discern JVD given very thickened neck. Lungs: Diminished, greater bases, mildly increased respiratory rate but no distress, no rales, ronchi or wheezing. Heart: Irregular irregular; no gallop, rub audible. Abdomen: Soft, morbidly obese, NTTP, distant BS, no discern distention or HSM however this is difficult given habitus. Extremities: No cyanosis, no clubbing, bilateral lower extremity pedal to distal shipley chronic venous stasis disease skin changes, chronic edema. Neurological: Awake, intermittently alert but not oriented, inappropriately grabbing during evaluation, not answering questions appropriately, not at baseline per discussion with daughter, cognitive function improving but not baseline intact; pupils equally reactive to light and accommodation, cranial nerves grossly normal, moving all 4 extremities, no focal deficits, strength severely globally decreased. Psychiatric: Affect appears fatigued, mildly flat, no acute evidence of depressive or anxiety feelings. But does have underlying Results Lab / Micro Data 09/08/24 15:52 09/08/24 15:52 Labs: Laboratory Results - last 24 hr 09/08/24 15:52: Sodium 136, Potassium 4.7, Chloride 96 L, Carbon Dioxide 30.7, Anion Gap 10, BUN 54 H, Creatinine 2.39 H, Estim Creat Clear Calc 41.86 L, Est GFR (MDRD) Non-Af 29 L, BUN/Creatinine Ratio 22.6 H, Glucose 170 H, Lactic Acid 1.1, Calcium 8.4, Troponin T High Sens 46 H 09/08/24 16:05: Urine Color Yellow, Urine Clarity Cloudy, Urine pH 6.5, Ur Specific [place] 1.010, Urine Protein 100 H, Urine Glucose (UA) Normal, Urine Ketones Negative, Urine Occult Blood 250 H, Urine Nitrite Negative, Urine Bilirubin Negative, Urine Urobilinogen Normal, Ur Leukocyte Esterase 500 H, Urine RBC 25-50 SEEN, Urine WBC >100 SEEN, Ur Squamous Epith Cells 0-5 SEEN, Ur Renal Epithelial Cell 0-5 SEEN, Urine Bacteria 2+, Urine Mucus 0 SEEN 09/08/24 17:59: Troponin T Hi Sens 2 Hr 45 H ABG Data ABG results: ABG 09/08/24 16:18 Specimen Type ART Sample Site Not entered pH 7.41 Bicarbonate Actual 33.3 H Total CO2 35 Base Excess 9 H O2 Saturation 96 O2 % 2.0 ABG pCO2 52.8 H ABG pO2 82 O2 Delivery Device Cannula Vent Mode Not entered Imaging Radiology Impression Brain CT 09/08/24 15:50 IMPRESSION: NO ACUTE FINDINGS Reading Location: [facility] Chest X-Ray 09/08/24 16:30 IMPRESSION: Left lower lobe atelectasis or pneumonia. Reading Location: [id number] Assessment & Plan Assessment/Plan (1) UTI (urinary tract infection): (2) Seizure-like activity: (3) Renal insufficiency: (4) Elevated troponin: PLAN: Plan The patient is a 69 y/o M w/ PMHx: KARLA on BIPAP q HS, Chronic orthostatic hypotension, Morbid obesity, Hypothyroidism, PAF, Diabetes mellitus type II, HTN, HLD, Former tobacco use, GERD, Anxiety and Depression, HF unclear type, CAD s/p PCI and CABG, COPD w/ chart documented 3L NC chronic usage (currently on RA in the ED, attempting to verify), Chronic indwelling Bran catheter of unclear etiology who presents to the [facility] ED on 09/08/24 with history of seizure-like activity occurring at the correction facility on day of presentation with reportedly generalized shaking and seizure-like activity which eventually stopped within twitching of his hands with confusion following which persisted into the ED transition for evaluation. #1. Acute Encephalopathy, suspect multifactorial, secondary to Acute Complicated Urinary Tract Infection secondary to chronic indwelling Bran catheter, uncertain why this is in place and well as #4: Will admit to PCU given #3, UA upon ED evaluation remarkable, pending UCx, judiciously administered IVFs, monitor I/Os, continue IV Rocephin w/ transition as able pending sensitivities and speciation. Most recent noted cultures in the [facility] system currently included 12/23/2022 Citrobacter with greater than 100,000 with near riley sensitivity except for resistance to cefazolin in addition to 10/05/2022 greater than 100,000 Pseudomonas aeruginosa's with riley sensitivity noted. Daughter does report resistance patterns thus to be cautious we will request records from [facility] where patient has obtained most of his care. Also, discussed with ER nurse and Dona change requested in the ED. #2. Acute renal insufficiency/elevated creatinine on CKD stage III unclear subtype per GFR trending: Secondary to acute presentation as noted. Admission BUN/Cr 50/2.39, GFR 29, usually GFR consistent with stage III range, prior baseline creatinine noted to be primarily 1.7-2.0, most recently/02/19 creatinine 1.95. Will very judiciously hydrate, hold nephrotoxic medications and repeat chemistry in AM. If no improvement will investigate further. #3. Questionable left lower lobe atelectasis versus pneumonia: No recent cough or URI type symptoms reported for skilled facility, currently on room air now, will continue to closely monitor given seizure activity and risk for aspiration, will plan to continue to judiciously hydrate and repeat chest x-ray in a.m. to assure no infiltrate developing. #4. Breakthrough seizure, potentially secondary to #1, #2 with postictal phase w/ also noted mild acute hypercapnia however this could be chronic with hypoventilation syndrome given habitus and underlying COPD: Seizure witnessed with postictal state at facility. Improved mental status in the emergency room. CT head without acute intracranial pathology. Patient does have possible urinary tract infection and acute renal insufficiency is noted. Will maintain on monitor as noted, maintain on seizure precautions, request neurology consultation, will load with Keppra and continue IV Keppra pending neurology evaluation, will obtain MRI of the brain, TSH, EEG and urine drug screen. #5. Indeterminate cardiac enzyme: EKG in ED with atrial fibrillation without acute evidence of ischemia, CXR w/ left lower lobe atelectasis versus pneumonia, initial trop 46 with repeat delta 45 however in the setting of significant renal disease with acute renal insufficiency concurrently. Will maintain on monitor and continue to cycle cardiac enzymes. Repeat EKGs only if necessary/symptomatic. Magnesium level requested. ASA. #6. PAF with RVR: Will continue patient on metoprolol regimen as BP allows but if persistent RVR may require consideration of digoxin or amlodipine, not on any chronic anticoagulant, per discussion with daughter it appears likely he had been on NOAC in the past but had significant hematuria and it was stopped. Will administer continued fluids as this may also be a component given #1. #7. HF, unclear type: No echocardiogram noted in the system, monitor closely given judicious hydration needs, will continue aspirin, statin, metoprolol regimen, temporarily holding Lasix given worsening renal function, add back once appropriate, monitor weights. #8. CAD: Status post PCI and CABG, continue aspirin, statin, metoprolol, not on ACEI/ARB. #9. Chronic orthostatic hypotension: Will continue patient home scheduled midodrine regimen. Will give a dose now as from discussion with daughter is likely missed at least 1 dose today. #10. Anxiety and depression: Will continue patient home Cymbalta, Ativan and trazodone regimen with hold for sedation as needed. #11. Hypothyroidism: Will continue patient home levothyroxine regimen. TSH and FT4 requested. #12. Diabetes mellitus type II with chronic neuropathy: Hold oral home regimen, continue home insulin regimen, ADA diet, accu checks w/ ISS, continue home gabapentin regimen. #13. Chronic constipation: Will continue patient home bowel regimen including Amitiza and MiraLAX daily regimen. #14. Hypertension: Continue home regimen including metoprolol, holding Lasix as noted above, PRN hydralazine. #15. Hyperlipidemia: Will continue patient on statin and ezetimibe therapy #16. Morbid Obesity: Weight loss and lifestyle changes encouraged. #17. GERD: Will continue patient on PPI. #18. COPD w/ chart documented chronic hypoxic respiratory failure and possibly chronic hypercapnia with 3L NC chronic usage (currently on RA in the ED, attempting to verify): Clarifying oxygen usage at skilled facility, if continued 3 L supplementation will maintain on his supplementation, will maintain on ATC budesonide therapy, PRN albuterol, HOB, IS parameters. #19. KARLA: BIPAP nightly. #20. Former tobacco use: Encourage continued tobacco cessation. #21. DVT prophylaxis: Heparin. #22. CODE status: Full code per facility paperwork. Charges/Coding Visit Charges Inpatient E&M: 99443 Init Hosp L3
[2024-09-08 18:53] LABS: International Normalized Ratio 1.3; Prothrombin Time (Protime)PT. 16.2 SECONDS (11.7-14.9)
[2024-09-08 19:04] LABS: Differential Indicated SCAN CRITERIA MET
[2024-09-08] MEDS: Ceftriaxone 2 GM in 0.9% Normal Saline (50mL MB+) 50 ML IV (19:10)
[2024-09-08] MEDS: Midodrine HCl 5 MG Tablet PO (20:04)
--- NOTE | 2024-09-08 20:31 | ED.RN ---
Carcamo catheter placed [facility]IL [facility] to ED. Per MD, Catheter changed with a new 24Fr. catheter and drainage bag
[2024-09-08 20:44] LABS: Troponin T High Sens 4 HR 48 ng/L (<=22)
[2024-09-08 20:57] LABS: Magnesium 1.9 mg/dL (1.5-2.2)
[2024-09-08 21:26] LABS: Amphetamine Urine NEGATIVE (<1000 ng/mL); Barbiturate Urine NEGATIVE (< 200 ng/mL); Benzodiazepine Urine NEGATIVE (< 200 ng/mL); Buprenorphine Urine NEGATIVE (< 200 ng/mL); Cocaine Urine NEGATIVE (< 300 ng/mL); Fentanyl, Urine NEGATIVE; Methadone Urine NEGATIVE (< 300 ng/mL); Opiates Urine NEGATIVE (< 300 ng/mL); Oxycodone, Urine NEGATIVE (< 100 ng/mL); PCP Urine NEGATIVE (< 25 ng/mL); THC Urine NEGATIVE (< 50 ng/mL)
[2024-09-08] MEDS: 0.9% Normal Saline (1000mL) 1,000 ML 100 ML IV (21:34)
[2024-09-08] MEDS: 0.9% Saline Lock 10 ML Syringe IV (21:35)
[2024-09-08] MEDS: levETIRAcetam IV 1,000 MG/100 ML BAG 400 MG IV (21:47)
[2024-09-08] MEDS: traZODone 50 MG Tablet 75 MG PO (21:48)
[2024-09-08] MEDS: Menthol/Lanolin/Calamine/Znox 113 GM Tube 1 APPLIC TOPICAL (21:48)
[2024-09-08] MEDS: Heparin Injection (Vial) 5,000 UNIT/ML VIAL 5000 UNIT SC (21:49)
[2024-09-08] MEDS: Metoprolol(XL)Succ 100 MG Tablet PO (21:50)
[2024-09-08] MEDS: Atorvastatin Calcium 40 MG Tablet PO (21:51)
[2024-09-08] MEDS: Ezetimibe 10 MG Tablet PO (21:51)
[2024-09-08] MEDS: Gabapentin 300 MG Capsule 900 MG PO (22:05)
[2024-09-08] MEDS: Insulin Lispro 100 UNIT/ML INSULN.PEN SC (22:06)
[2024-09-08] MEDS: 0.9% Normal Saline (500mL Bag) 500 ML 999 ML IV (22:08)
[2024-09-08 22:52] LABS: Differential Comment SCANNED; Pathologist Review May foll
[2024-09-08 23:02] LABS: Bedside Glucose 162 mg/dL (74-106)
[2024-09-09] VITALS (11 sets, daily range): BP systolic 86–108; BP diastolic 52–72; PULSE 79–112; RESP 16–24; TEMP 36.2–36.9; O2SAT 93–98; BMI 49.4
[2024-09-09] MEDS: Budesonide Respules 0.5 MG/2 ML AMPUL.NEB. INHALATION ×3 (00:20→19:35)
[2024-09-09 05:38] LABS: Absolute Lymphocyte Count 1.42 X10^3/uL (0.83-4.51); Absolute Neutrophil Count 21.1 X10^3/uL (2.0-7.7); Basophil# 0.06 X10^3/uL; Basophil% 0.2 % (0-1); Eosinophil# 0.21 X10^3/uL; Eosinophils% 0.8 % (0-5); Hematocrit 29.9 % (40-54); Hemoglobin 8.5 g/dL (13.0-16.5); Lymphocyte # 1.42 X10^3/ul (0.83-4.51); Lymphocyte % 5.7 % (19-41); Mean Corp Hgb Conc 28.4 g/dL (32-36); Mean Corpuscular Hgb 23.1 pg (27.0-32.0); Mean Corpuscular Volume 81.3 fL (80-94); Mean Platelet Vol. 9.8 fl (6.2-12.0); Monocyte# 1.93 X10^3/uL; Monocyte% 7.7 % (0-10); NRBC Flagged by Analyzer 0 % (0-5); Neutrophil # 21.12 X10^3/uL (2.7-7.7); Neutrophil % 84.8 % (47-70); POSITIVE DIFFERENTIAL YES; Platelet Count 194 K/mm3 (150-450); RBC Distribution Width CV 19.6 % (11.6-14.6); RBC Distribution Width SD 57.7 fl (35.1-43.9); Red Blood Count 3.68 M/mm3 (4.6-6.2); White Blood Count 24.9 K/mm3 (4.4-11.0)
[2024-09-09 05:42] LABS: Differential Indicated SCAN CRITERIA MET
[2024-09-09] MEDS: Levothyroxine 25 MCG TABLET PO (05:43)
--- NOTE | 2024-09-09 06:00 | RAD_ITS ---
PROCEDURE: CHEST 1 VIEW (PORTABLE) 09/09/2024 REASON FOR EXAM: ? PNA TECHNIQUE: Frontal view of the chest. COMPARISON: 09/08/2024 FINDINGS: Patchy opacity at the left base again seen may represent infiltrate, developing pneumonia or asymmetric pulmonary edema, clinically correlate. The right lung appears clear. Status post median sternotomy again noted. Patient is mildly rotated to the right. Bilateral acromioclavicular joint osteoarthrosis. RAD/Chest 1 View (Portable) IMPRESSION: Patchy opacity at the left base again seen may represent infiltrate, developing pneumonia or asymmetric pulmonary edema, clinically correlate. Reading Location: [id number]
[2024-09-09 06:30] LABS: Differential Comment SCANNED; Platelet Estimate ADEQUATE (ADEQ)
[2024-09-09 06:31] LABS: Ovalocyte 2+; Tear Drop Cell 1+
[2024-09-09 06:48] LABS: Bedside Glucose 150 mg/dL (74-106)
[2024-09-09 07:12] LABS: Cholesterol 65 mg/dL (<=200); High Density Lipoprotein 38 mg/dL; Low Density Lipoprotein Calc. 16 mg/dL; Triglycerides 53 mg/dL; Very Low Density Lipoprotein 11 mg/dL (5-40); cholesterol:hdl ratio screen 1.71
[2024-09-09 07:13] LABS: ALB/GLOB Ratio 1.1 RATIO (0.9-2.4); AST(SGOT) 14 U/L (<=37); Alanine Aminotransfer ALT/SGPT 11 U/L (<=46); Albumin, Serum 3.2 g/dL (3.4-4.8); Alkaline Phosphatase 89 U/L (40-129); Anion Gap 10 (5-15); BUN 53 mg/dL (4-19); BUN/Creat Ratio 23.1 RATIO (10-20); Calcium,Total 7.8 mg/dL (7.6-11.0); Chloride 99 mmol/L (98-108); Creatinine, Serum 2.28 mg/dL (0.70-1.20); EST Glomerular Filtration Rate 30 (>60); Estimated Creatinine Clearance 43.93 ml/min (50-250); Glucose 136 mg/dL (70-99); Potassium 4.6 mmol/L (3.3-5.1); Protein, Total 6.2 g/dL (5.9-8.4); Sodium Level 137 mmol/L (133-145); Total Bilirubin 0.36 mg/dL (0.00-1.30)
[2024-09-09] MEDS: Midodrine HCl 5 MG Tablet PO ×3 (08:29→17:53)
[2024-09-09] MEDS: Aspirin 81 MG TAB.CHEW PO (08:29)
[2024-09-09] MEDS: 0.9% Saline Lock 10 ML Syringe IV ×2 (08:30→11:16)
[2024-09-09] MEDS: Gabapentin 300 MG Capsule 900 MG PO ×2 (11:08→20:54)
[2024-09-09] MEDS: Polyethylene Glycol 3350 17 GM PACKET PO (11:08)
[2024-09-09] MEDS: levETIRAcetam IV 500 MG in 0.9% Normal Saline (100mL Bag) 100 ML 420 MG IV ×2 (11:08→21:10)
[2024-09-09] MEDS: Menthol/Lanolin/Calamine/Znox 113 GM Tube 1 APPLIC TOPICAL (11:09)
[2024-09-09] MEDS: DULoxetine Hcl 60 MG Capsule PO (11:09)
[2024-09-09] MEDS: Heparin Injection (Vial) 5,000 UNIT/ML VIAL 5000 UNIT SC ×2 (11:09→20:55)
[2024-09-09] MEDS: Pantoprazole Sodium 40 MG Tablet PO (11:09)
[2024-09-09] MEDS: 0.9% Normal Saline (100mL Bag) 100 ML 15 ML IV (11:40)
[2024-09-09 11:43] LABS: Bedside Glucose 138 mg/dL (74-106)
--- NOTE | 2024-09-09 11:57 | CASEMGMT ---
RN notified SW that patient would like to do Healthcare Power of Strategy Specialist (HCPOA) papers and his daughter is currently in patient's room. SW went to patient's room. Introduced self and role at [facility]. Patient's daughter Jamila was talking to SW and patient said, Where is the paper? SW asked patient if he wanted to read over the documents. Patient said, No, I just want to sign them. SW told patient that SW will have to go get another person to witness him sign. Patient started yelling at asking if SW knew SW needed another witness why would SW not bring someone to begin with. Patient kept repeating this. Jamila told patient to stop yelling at patient then told her to shut up. Patient's RN walked into the room and patient asked the RN, What are you looking at? Patient did calm down and SW did explain normally SW goes over the paperwork with patient and fills out the forms then SW has someone come in to witness. SW clarified that patient wanted his daughter Jamila as his HCPOA. Patient declined wanting any alternates listed. SW had patient sign HCPOA. SW then finished filling out documents. Copies were made and given to patient along with original. [facility] also placed a copy in patient's chart. [facility] did ask Jamila if the plan is to return to [facility] at discharge. Jamila said she does not want him going back there. Jamila said she would prefer he goes home with home health. Jamila said if she has to be there with him all the time that is fine. [facility] told Jamila that we will see how patient does with therapy. Gricelda VILLALOBOS
--- NOTE | 2024-09-09 12:17 | CON.PCM.NE_ITS ---
Assessment and Plan: Neuro Assessment/Plan GALILEO HORVATH is a 69 M with a past medical history of DM, HTN, HLD, Afib, seizures who is presenting with a seizure in the setting of UTI. Unclear description of seizure like activity, but if so, would treat as first time provoked seizure in the setting of underlying infection His exam is improving Plan: Transfer to [facility] for the following reasons: I personally attended this patient and spent a total time of minutes evaluating this patient including clinical assessment, review of chart, medical history imaging, and determining appropriate treatment and workup. HPI Consult Data Date of Consult: 09/09/24 HPI Narrative HPI Narrative: The patient is a 69 y/o M w/ PMHx: KARLA on BIPAP q HS, Chronic orthostatic hypotension, Morbid obesity, Hypothyroidism, PAF, Diabetes mellitus type II, COPD w/ chart documented 3L NC chronic usage (currently on RA in the ED, attempting to verify), HTN, HLD, Former tobacco use, GERD, Anxiety and Depression, HF unclear type, CAD s/p PCI and CABG, Chronic indwelling bran catheter with unclear etiology who presents to the [facility] ED on 09/08/24 with reported seizure-like activity occurring at the senior care facility described as generalized shaking and seizure-like activity, after which he was confused. In the ED patient did improve mildly, able to be oriented to person and place but confused still about year and month with no recent illnesses per his report. Workup in the ED included T99.4, heart rate 117, BP 97/57, BUN/creatinine 50/2.39, urinalysis with cloudy appearing urine + leukocyte Estrace urine culture pending per ED, CT brain with no acute intracranial findings, chest x- ray with left lower lobe atelectasis versus pneumonia, atrial fibrillation without acute evidence of ischemia. He was started on Rocephin and admitted for further management. Loasded with Keppra EEG with moderate diffuse encephalopathy, no epileptic activity or seizures Per nursing, baseline is AOx3 Patietn reports that he has had seizures in the past, he is on Neuro Exam Exam performed with help of the nurse/LOC present with patient on Tele site NEURO: Sleep falling asleep, but wakes up easily, interactive AAOx3, follows commands, no aphasia/dysarthria. EOMI, no gaze preference Face symmetric, Intact facial sensation. Tongue midline. Head turning intact. Sensation: intact to light touch all over Motor: All extremities antigravity Coordination: FTN intact bilaterally PFSH Medical History KARLA treated with BiPAP A-fib Hypothyroid Epilepsy CHF (congestive heart failure) Metabolic encephalopathy Kidney failure Kidney disease Anxiety Diabetes Arthritis GERD (gastroesophageal reflux disease) Former smoker On home oxygen therapy COPD (chronic obstructive pulmonary disease) Myocardial infarct Hyperlipidemia Hypertension Migraines Seizures Home Medications ?Medication ?Instructions ?Recorded ?Last Taken ?Type ezetimibe 10 mg tablet (Zetia) 10 mg PO BID 12/21/20 U nknown History furosemide 80 mg tablet (Lasix) 80 mg PO BID 12/21/20 Unknown History insulin glargine U-300 conc 300 100 unit subcut QHS Unknown History unit/mL (3 mL) subcutaneous pen (Toujeo Max U-300 SoloStar) insulin lispro 100 unit/mL See Protocol subcut TID Unknown History subcutaneous pen (Humalog KwikPen (U-100) Insulin) metoprolol succinate 25 mg 25 mg PO DAILY 12/21/20 Unk nown History tablet,extended release 24 hr atorvastatin 40 mg tablet 40 mg PO QHS 09/08/24 Unknow n History cholecalciferol (vitamin D3) 125 125 mcg PO QWEEK 08/26 09/19 Unknown History mcg (5,000 unit) tablet (Vitamin D3) duloxetine 60 mg capsule,delayed 60 mg PO DAILY Unknown History release (Cymbalta) exenatide microspheres 2 mg/0.85 2 mg subcut .q wed Unknown History mL subcutaneous auto-injector (Bydureon BCise) gabapentin 300 mg capsule 900 mg PO BID 09/08/24 Unkno wn History hydrocodone-acetaminophen 5-325mg 1 tab PO Q6H PRN kike n 09/08/24 Unknown History 5mg-325mg levothyroxine 25 mcg tablet 25 mcg PO DAILY 09/08/24 U nknown History lorazepam 0.5 mg tablet (Ativan) 0.5 mg PO Q6H PRN anx iety 09/08/24 Unknown History lubiprostone 8 mcg capsule 8 mcg PO DAILY 09/08/24 Unk nown History (Amitiza) metoprolol succinate 100 mg 100 mg PO BID 09/08/24 Unk nown History tablet,extended release 24 hr midodrine 5 mg tablet 5 mg PO TID 09/08/24 Unknown History pantoprazole 40 mg tablet,delayed 40 mg PO DAILY 09/08 Unknown History release polyethylene glycol 3350 17 17 g PO DAILY 09/08/24 Unk nown History gram/dose oral powder (Miralax) tramadol 50 mg tablet 50 mg PO Q8H PRN pain Unknown History trazodone 150 mg tablet 75 mg PO QHS 09/08/24 Unknow n History Allergy/AdvReac Type Severity Reaction Status Date / Time diphenhydramine (From Allergy Other Verified 09/08/24 15:25 Benadryl) Family History Father Diabetes Son Leukemia Mother Cancer Surgical History History of total left knee replacement (TKR) History of coronary artery stent placement Hx of CABG Social History household members: none housing: senior living Smoking Status: Former smoker alcohol intake: current alcohol intake frequency: holidays/special occasions only substance use type: does not use Vital Signs Vital Signs Vital Signs: 09/08/24 15:25 09/08/24 15:30 09/08/24 15:52 Temperature 99.4 F H 99.2 F H Temperature Source Oral Oral Pulse Rate 117 H 118 H Pulse Strength Respiratory Rate 20 H 20 H Respiratory Effort Respiratory Depth Respiratory Pattern Blood Pressure 97/57 L 90/58 L Blood Pressure Mean 70 68 Blood Pressure Source Blood Pressure Position Blood Pressure Location Pulse Ox 98 100 100 Oxygen Delivery Method Room Air Nasal Cannula Nasal Cannula Oxygen Flow Rate (L/min) 2 2 09/08/24 16:30 09/08/24 17:00 09/08/24 18:00 Temperature 99.5 F H 100.5 F H 99.9 F H Temperature Source Oral Oral Oral Pulse Rate 112 H 122 H 110 H Pulse Strength Respiratory Rate 20 H 17 18 Respiratory Effort Respiratory Depth Respiratory Pattern Blood Pressure 104/68 115/67 108/83 H Blood Pressure Mean 80 83 91 Blood Pressure Source Blood Pressure Position Blood Pressure Location Pulse Ox 100 100 100 Oxygen Delivery Method Nasal Cannula Room Air Room Air Oxygen Flow Rate (L/min) 2 09/08/24 19:03 09/08/24 19:16 09/08/24 21:25 Temperature 100.1 F H 100.1 F H 98.9 F Temperature Source Oral Temporal Pulse Rate 114 H 115 H 111 H Pulse Strength Respiratory Rate 14 16 18 Respiratory Effort Respiratory Depth Respiratory Pattern Blood Pressure 103/71 107/76 125/53 H Blood Pressure Mean 81 86 77 Blood Pressure Source Monitor Blood Pressure Position Semi-Fowlers Blood Pressure Location Left Forearm Pulse Ox 91 99 97 Oxygen Delivery Method Nasal Cannula Nasal Cannula Oxygen Flow Rate (L/min) 2 2 09/08/24 21:45 09/08/24 21:45 09/08/24 21:50 Temperature Temperature Source Pulse Rate 111 H Pulse Strength Weak (1+) Respiratory Rate Respiratory Effort Normal Non-Labored Respiratory Depth Normal Respiratory Pattern Normal Blood Pressure 125/53 H Blood Pressure Mean Blood Pressure Source Blood Pressure Position Blood Pressure Location Pulse Ox Oxygen Delivery Method Nasal Cannula Oxygen Flow Rate (L/min) 3 09/09/24 00:20 09/09/24 00:20 09/09/24 03:30 Temperature 97.1 F L Temperature Source Temporal Pulse Rate 112 H 98 Pulse Strength Respiratory Rate 24 H 18 Respiratory Effort Respiratory Depth Respiratory Pattern Tachypnea Blood Pressure 106/72 Blood Pressure Mean 83 Blood Pressure Source Monitor Blood Pressure Position Semi-Fowlers Blood Pressure Location Right Forearm Pulse Ox 97 98 Oxygen Delivery Method Nasal Cannula Nasal Cannula Oxygen Flow Rate (L/min) 3 2 09/09/24 03:30 09/09/24 08:25 09/09/24 08:27 Temperature 97.7 F L Temperature Source Oral Pulse Rate 79 Pulse Strength Respiratory Rate 16 Respiratory Effort Normal Non-Labored Normal Non-Labored Respiratory Depth Normal Normal Respiratory Pattern Normal Normal Blood Pressure 95/66 Blood Pressure Mean 75 Blood Pressure Source Monitor Blood Pressure Position Semi-Fowlers Blood Pressure Location Right Forearm Pulse Ox 94 Oxygen Delivery Method Nasal Cannula Room Air Room Air Oxygen Flow Rate (L/min) 2 09/09/24 11:19 Temperature Temperature Source Pulse Rate Pulse Strength Respiratory Rate Respiratory Effort Respiratory Depth Respiratory Pattern Blood Pressure 86/52 L Blood Pressure Mean Blood Pressure Source Blood Pressure Position Blood Pressure Location Pulse Ox Oxygen Delivery Method Oxygen Flow Rate (L/min) Weight Weight: 147.8 kg Body Mass Index (BMI) 49.4 EEG Results Procedure Details EEG Procedure Details: Inpatient routine EEG report performed at [facility] Study start time: 0644 am on 09/09/24 End Time: 0736 am on 09/09/24 History: Rule out seizures Indication: Rule out seizures Technical Description: This is a 18-channel digital EEG recording with time- locked video and single-channel electrocardiogram. Electrodes are placed according to the 10 to 20 International System. The patient was monitored continuously by EEG technicians and EEG recording was reviewed intermittently with annotations to the EEG record. Portions of this record are reviewed using bandpass filters of 1 to 70 Hz and sensitivity of 7mV/mm. EEG DESCRIPTION Background: This recording was obtained mostly during sleep like stage, with brief awake like state towards the end of the recording. There was generalized continuous slowing of theta frequencies intermixed with some delta activity. Transient non-sustained PDR of 7-8 Hz was seen. Activation Procedures: Photic stimulation was performed. No abnormal or epileptic activity was triggered by this procedure. Sporadic Epileptiform Discharges: none Focal slow activity: none Rhythmic or Periodic activity: none Seizures: none Patient Events: none EEG DIAGNOSIS: Encephalopathy CLINICAL INTERPRETATION This EEG is consistent with moderate diffuse encephalopathy. No epileptiform discharges or lateralizing signs were seen. Sandi Sanchez MD Lab / Micro Data 09/09/24 04:30 09/09/24 04:56 Labs: Laboratory Results - last 24 hr 09/08/24 15:52: WBC 20.8 H, RBC 3.81 L, Hgb 8.7 L, Hct 30.7 L, MCV 80.6, MCH 22.8 L, MCHC 28.3 L, RDW Std Deviation 57.4 H, RDW Coeff of Samuel 19.5 H, Plt Count 202, MPV 9.1, Immature Gran % (Auto) 0.600, Neut % (Auto) 86.6 H, Lymph % (Auto) 3.5 L, [place] % (Auto) 7.8, Eos % (Auto) 1.3, Baso % (Auto) 0.2, Absolute Neuts (auto) 18.0 H, Absolute Lymphs (auto) 0.72 L, Nucleated RBC % 0, Differential Comment SCANNED, Diff Path Review September, PT 16.2 H, INR 1.3, A PTT 39.0 H, Sodium 136, Potassium 4.7, Chloride 96 L, Carbon Dioxide 30.7, Anion Gap 10, BUN 54 H, Creatinine 2.39 H, Estim Creat Clear Calc 41.86 L, Est GFR (MDRD) Non-Af 29 L, BUN/Creatinine Ratio 22.6 H, Glucose 170 H, Lactic Acid 1.1, Calcium 8.4, Troponin T High Sens 46 H 09/08/24 16:05: Urine Color Yellow, Urine Clarity Cloudy, Urine pH 6.5, Ur Specific [place] 1.010, Urine Protein 100 H, Urine Glucose (UA) Normal, Urine Ketones Negative, Urine Occult Blood 250 H, Urine Nitrite Negative, Urine Bilirubin Negative, Urine Urobilinogen Normal, Ur Leukocyte Esterase 500 H, Urine RBC 25-50 SEEN, Urine WBC >100 SEEN, Ur Squamous Epith Cells 0-5 SEEN, Ur Renal Epithelial Cell 0-5 SEEN, Urine Bacteria 2+, Urine Mucus 0 SEEN, Urine Opiates Screen NEGATIVE, U Buprenorphine Qual NEGATIVE, Ur Oxycodone Screen NEGATIVE, Urine Methadone Screen NEGATIVE, Urine Fentanyl Screen NEGATIVE, Ur Barbiturates Screen NEGATIVE, Ur Phencyclidine Scrn NEGATIVE, Ur Amphetamines Screen NEGATIVE, U Benzodiazepines Scrn NEGATIVE, Urine Cocaine Screen NEGATIVE, U Cannabinoids Screen NEGATIVE 09/08/24 17:59: Troponin T Hi Sens 2 Hr 45 H 09/08/24 20:00: Magnesium 1.9, Troponin T Hi Sens 4Hr 48 H 09/08/24 21:27: POC Glucose 162 H 09/09/24 04:30: WBC 24.9 H, RBC 3.68 L, Hgb 8.5 L, Hct 29.9 L, MCV 81.3, MCH 23.1 L, MCHC 28.4 L, RDW Std Deviation 57.7 H, RDW Coeff of Samuel 19.6 H, Plt Count 194, MPV 9.8, Immature Gran % (Auto) 0.800, Neut % (Auto) 84.8 H, Lymph % (Auto) 5.7 L, [place] % (Auto) 7.7, Eos % (Auto) 0.8, Baso % (Auto) 0.2, Absolute Neuts (auto) 21.1 H, Absolute Lymphs (auto) 1.42, Nucleated RBC % 0, Differential Comment SCANNED, Diff Path Review May foll, Platelet Estimate ADEQUATE, Tear Drop Cells 1+, Ovalocytes 2+ 09/09/24 04:56: Sodium 137, Potassium 4.6, Chloride 99, Carbon Dioxide 28.0, Anion Gap 10, BUN 53 H, Creatinine 2.28 H, Estim Creat Clear Calc 43.93 L, Est GFR (MDRD) Non-Af 30 L, BUN/Creatinine Ratio 23.1 H, Glucose 136 H, Calcium 7.8, Total Bilirubin 0.36, AST 14, ALT 11, Alkaline Phosphatase 89, Total Protein 6.2, Albumin 3.2 L, Globulin 3.0, Albumin/Globulin Ratio 1.1, Triglycerides 53, Cholesterol 65, LDL Cholesterol, Calc 16, VLDL Cholesterol 11, HDL Cholesterol 38 L, Cholesterol/HDL Ratio 1.71, TSH 1.630, Free T4 0.90 09/09/24 06:30: POC Glucose 150 H 09/09/24 11:07: POC Glucose 138 H Micro: Microbiology 09/08/24 16:05 Urine, Catheterized Urine Culture - Preliminary GNR lactose rate setter ABG Data ABG results: ABG 09/08/24 16:18 Specimen Type ART Sample Site Not entered pH 7.41 Bicarbonate Actual 33.3 H Total CO2 35 Base Excess 9 H O2 Saturation 96 O2 % 2.0 ABG pCO2 52.8 H ABG pO2 82 O2 Delivery Device Cannula Vent Mode Not entered Imaging Radiology Impression Brain CT 09/08/24 15:50 IMPRESSION: NO ACUTE FINDINGS [facility] Chest X-Ray 09/08/24 16:30 IMPRESSION: Left lower lobe atelectasis or pneumonia. Reading Location: [facility] Chest X-Ray 09/09/24 06:00 IMPRESSION: Patchy opacity at the left base again seen may represent infiltrate, developing pneumonia or asymmetric pulmonary edema, clinically correlate. Reading Location: [id number] Brain MRI 09/09/24 21:03 IMPRESSION: The temporal lobes appear normal. No acute abnormal intracranial finding. Reading Location: [facility] Active Medications Active Medications Active Medications: Current Medications Generic Name Dose Route Start Last Admin Trade Name Freq PRN Reason Stop Dose Admin Acetaminophen 650 mg 09/08/24 21:03 Acetaminophen 325 Mg Tablet PO Q4H PRN PRN Fever, pain 1-10/10 Acetaminophen 650 mg 09/08/24 21:03 Acetaminophen 650 Mg Suppository RC Q4H PRN PRN Fever, pain 1-10 Al Hydroxide/Mg Hydroxide 30 ml 09/08/24 21:03 Mag Hydrox/Al Hydrox/Simeth 30 Ml Udc PO Q6H PRN PRN Gastric Burning Albuterol Sulfate 2.5 mg 09/08/24 21:03 Albuterol 2.5 Mg/3 Ml Vial.Neb. INHALATION Q2H PRN PRN Dyspnea, wheezing Aspirin 81 mg 09/09/24 08:00 09/09/24 08:29 Aspirin 81 Mg Tab.Chew PO 81 mg BREAKFAST ESPERANZA Administration Atorvastatin Calcium 40 mg 09/08/24 22:00 09/08/24 21:51 Atorvastatin Calcium 40 Mg Tablet PO 40 mg QHS ESPERANZA Administration Budesonide 0.5 mg 09/08/24 22:00 09/09/24 07:32 Budesonide Respules 0.5 Mg/2 Ml Ampul.Neb. INHALATION 0.5 mg BID.RT ESPERANZA Administration Calamine/Phenol 1 applic 09/08/24 22:00 09/09/24 11:09 Menthol/Lanolin/Calamine/Znox 113 Gm Tube TOPICAL 1 applic 4X/DAY ESPERANZA Administration Protocol Duloxetine HCl 60 mg 09/09/24 10:00 09/09/24 11:09 Duloxetine Hcl 60 Mg Capsule PO 60 mg DAILY ESPERANZA Administration Ezetimibe 10 mg 09/08/24 22:00 09/08/24 21:51 Ezetimibe 10 Mg Tablet PO 10 mg QHS ESPERANZA Administration Gabapentin 900 mg 09/08/24 22:00 09/09/24 11:08 Gabapentin 300 Mg Capsule PO 900 mg BID ESPERANZA Administration Glucagon 1 mg 09/08/24 21:03 Glucagon 1 Mg/Ml Syringe IM X1 PRN HYPOGLYCEMIA Protocol Guaifenesin 20 ml 09/08/24 21:03 Guaifenesin 10 Ml Udc (200mg/10ml) PO Q4H PRN PRN COUGH Heparin Sodium (Porcine) 5,000 unit 09/08/24 22:00 09/09/24 11:09 Heparin Injection (Vial) 5,000 Unit/Ml Vial SC 5,000 unit Q12 ESPERANZA Administration Hydralazine HCl 10 mg 09/08/24 21:03 Hydralazine 20 Mg/Ml Vial IV Q4H PRN PRN SBP > 160 Protocol Levetiracetam 500 mg/ Sodium 105 mls @ 420 mls/hr 09/09/24 10:00 09/09/24 11:08 Chloride IV 420 mls/hr Q12 ESPERANZA Administration Ceftriaxone Sodium 2 gm/ 50 mls @ 100 mls/hr 09/09/24 22:00 Sodium Chloride IV 2200 ESPERANZA Dextrose 250 mls @ 0 mls/hr 09/08/24 21:03 Dextrose 10%-Water IV .Q0M PRN HYPOGLYCEMIA Protocol As Directed Sodium Chloride 100 mls @ 15 mls/hr 09/09/24 11:32 IV .Q6H40M PRN Saline Flush Sodium Chloride 100 mls @ 15 mls/hr 09/09/24 11:32 IV .Q6H40M PRN Additional IVPB Infusion Insulin Glargine 100 unit 09/08/24 22:00 09/08/24 22:08 Insulin Glargine-Yfgn 100 Unit/Ml Pen SC Not Given QHS [facility] Insulin Human Lispro 0 unit 09/08/24 22:00 09/09/24 11:08 Insulin Lispro 100 Unit/Ml Insuln.Pen SC Not Given ACHS [facility] Protocol Levothyroxine Sodium 25 mcg 09/09/24 06:00 09/09/24 05:43 Levothyroxine 25 Mcg Tablet PO 25 mcg DAILY@0600 [facility] Administration Lorazepam 0.5 mg 09/08/24 21:03 Lorazepam 0.5 Mg Tablet PO Q6H PRN PRN anxiety Lorazepam 0.5 mg 09/08/24 21:03 Lorazepam 2 Mg/Ml [facility] Syringe IV PRN PRN seizure, notify of use Melatonin 3 mg 09/08/24 21:03 Melatonin 3 Mg Tablet PO QHS PRN PRN INSOMNIA Metoprolol Succinate 100 mg 09/08/24 22:00 09/09/24 11:19 Metoprolol(Xl)Succ 100 Mg Tablet PO Not Given BID [facility] Protocol Midodrine 5 mg 09/09/24 08:00 09/09/24 11:23 Midodrine Hcl 5 Mg Tablet PO 5 mg TIDCM ESPERANZA Administration Non-Formulary Medication 8 mcg 09/09/24 10:00 Lubiprostone [Amitiza] PO DAILY ESPERANZA Ondansetron HCl 4 mg 09/08/24 21:03 Ondansetron 4 Mg/2 Ml Vial IV Q8H PRN PRN NAUSEA/VOMITING Pantoprazole Sodium 40 mg 09/09/24 10:00 09/09/24 11:09 Pantoprazole Sodium 40 Mg Tablet PO 40 mg DAILY ESPERANZA Administration Polyethylene Glycol 17 gm 09/09/24 10:00 09/09/24 11:08 Polyethylene Glycol 3350 17 Gm Packet PO 17 gm DAILY ESPERANZA Administration Prochlorperazine Edisylate 5 mg 09/08/24 21:03 Prochlorperazine 10 Mg/2 Ml Vial IV Q4H PRN PRN Breakthrough Nausea/Vomiting Sodium Chloride 10 - 40 ml 09/08/24 21:16 09/09/24 11:16 0.9% Saline Lock 10 Ml Syringe IV 10 ml UD PRN Administration SALINE FLUSH Tramadol HCl 50 mg 09/08/24 21:03 Tramadol 50 Mg Tablet PO Q8H PRN PRN pain 1-10 Trazodone HCl 75 mg 09/08/24 22:00 09/08/24 21:48 Trazodone 50 Mg Tablet PO 75 mg QHS ESPERANZA Administration
--- NOTE | 2024-09-09 16:12 | PN_ITS ---
Subjective Subjective Patient seen and examined. He was alert. He had no active complaints. He denied any dizziness, lightheadedness, palpitation, nausea vomiting or any other symptoms. Review of systems otherwise negative. Objective Data Objective Data Vital Signs: Vital Signs Temp Pulse Resp BP Pulse Ox O2 Del Method O2 Flow Rate 97.7 F L 90 18 88/58 L 95 Room Air 2 09/09/24 15:10 09/09/24 15:10 09/09/24 15:10 09/09/24 15:10 09/09/24 15:10 09/09/24 15:13 09/09/24 03:30 Oxygen Flow Rate (L/min) 2 Oxygen Delivery Method Room Air Weight: 325 lb 13.491 oz Body Mass Index (BMI) 49.4 Intake & Output: Intake and Output for Last 24 Hours 09/07/24 09/08/24 09/09/24 23:59 23:59 23:59 Intake Total 1833.33 / 1833.33 2297.92 / 2297.92 Output Total 400 / 400 800 / 800 Balance 1433.33 / 1433.33 1497.92 / 1497.92 Lab / Micro Data 09/09/24 04:30 09/09/24 04:56 Labs: Laboratory Results - last 24 hr 09/08/24 15:52: WBC 20.8 H, RBC 3.81 L, Hgb 8.7 L, Hct 30.7 L, MCV 80.6, MCH 22.8 L, MCHC 28.3 L, RDW Std Deviation 57.4 H, RDW Coeff of Samuel 19.5 H, Plt Count 202, MPV 9.1, Immature Gran % (Auto) 0.600, Neut % (Auto) 86.6 H, Lymph % (Auto) 3.5 L, [place] % (Auto) 7.8, Eos % (Auto) 1.3, Baso % (Auto) 0.2, Absolute Neuts (auto) 18.0 H, Absolute Lymphs (auto) 0.72 L, Nucleated RBC % 0, Differential Comment SCANNED, Diff Path Review September, PT 16.2 H, INR 1.3, A PTT 39.0 H, Sodium 136, Potassium 4.7, Chloride 96 L, Carbon Dioxide 30.7, Anion Gap 10, BUN 54 H, Creatinine 2.39 H, Estim Creat Clear Calc 41.86 L, Est GFR (MDRD) Non-Af 29 L, BUN/Creatinine Ratio 22.6 H, Glucose 170 H, Lactic Acid 1.1, Calcium 8.4, Troponin T High Sens 46 H 09/08/24 16:05: Urine Color Yellow, Urine Clarity Cloudy, Urine pH 6.5, Ur Specific [place] 1.010, Urine Protein 100 H, Urine Glucose (UA) Normal, Urine Ketones Negative, Urine Occult Blood 250 H, Urine Nitrite Negative, Urine Bilirubin Negative, Urine Urobilinogen Normal, Ur Leukocyte Esterase 500 H, Urine RBC 25-50 SEEN, Urine WBC >100 SEEN, Ur Squamous Epith Cells 0-5 SEEN, Ur Renal Epithelial Cell 0-5 SEEN, Urine Bacteria 2+, Urine Mucus 0 SEEN, Urine Opiates Screen NEGATIVE, U Buprenorphine Qual NEGATIVE, Ur Oxycodone Screen NEGATIVE, Urine Methadone Screen NEGATIVE, Urine Fentanyl Screen NEGATIVE, Ur Barbiturates Screen NEGATIVE, Ur Phencyclidine Scrn NEGATIVE, Ur Amphetamines Screen NEGATIVE, U Benzodiazepines Scrn NEGATIVE, Urine Cocaine Screen NEGATIVE, U Cannabinoids Screen NEGATIVE 09/08/24 17:59: Troponin T Hi Sens 2 Hr 45 H 09/08/24 20:00: Magnesium 1.9, Troponin T Hi Sens 4Hr 48 H 09/08/24 21:27: POC Glucose 162 H 09/09/24 04:30: WBC 24.9 H, RBC 3.68 L, Hgb 8.5 L, Hct 29.9 L, MCV 81.3, MCH 23.1 L, MCHC 28.4 L, RDW Std Deviation 57.7 H, RDW Coeff of Samuel 19.6 H, Plt Count 194, MPV 9.8, Immature Gran % (Auto) 0.800, Neut % (Auto) 84.8 H, Lymph % (Auto) 5.7 L, [place] % (Auto) 7.7, Eos % (Auto) 0.8, Baso % (Auto) 0.2, Absolute Neuts (auto) 21.1 H, Absolute Lymphs (auto) 1.42, Nucleated RBC % 0, Differential Comment SCANNED, Diff Path Review N/A, Platelet Estimate ADEQUATE, Tear Drop Cells 1+, Ovalocytes 2+ 09/09/24 04:56: Sodium 137, Potassium 4.6, Chloride 99, Carbon Dioxide 28.0, Anion Gap 10, BUN 53 H, Creatinine 2.28 H, Estim Creat Clear Calc 43.93 L, Est GFR (MDRD) Non-Af 30 L, BUN/Creatinine Ratio 23.1 H, Glucose 136 H, Calcium 7.8, Total Bilirubin 0.36, AST 14, ALT 11, Alkaline Phosphatase 89, Total Protein 6.2, Albumin 3.2 L, Globulin 3.0, Albumin/Globulin Ratio 1.1, Triglycerides 53, Cholesterol 65, LDL Cholesterol, Calc 16, VLDL Cholesterol 11, HDL Cholesterol 38 L, Cholesterol/HDL Ratio 1.71, TSH 1.630, Free T4 0.90 09/09/24 06:30: POC Glucose 150 H 09/09/24 11:07: POC Glucose 138 H Micro: Microbiology 09/08/24 16:05 Urine, Catheterized Urine Culture - Preliminary GNR lactose presto log operator ABG Data ABG results: ABG 09/08/24 16:18 Specimen Type ART Sample Site Not entered pH 7.41 Bicarbonate Actual 33.3 H Total CO2 35 Base Excess 9 H O2 Saturation 96 O2 % 2.0 ABG pCO2 52.8 H ABG pO2 82 O2 Delivery Device Cannula Vent Mode Not entered Radiography Diagnostic Testing: Radiology Impression Brain CT 09/08/24 15:50 IMPRESSION: NO ACUTE FINDINGS [facility]Ray 09/08/24 16:30 IMPRESSION: Left lower lobe atelectasis or pneumonia. Reading Location: [id number] Chest X-Ray 09/09/24 06:00 IMPRESSION: Patchy opacity at the left base again seen may represent infiltrate, developing pneumonia or asymmetric pulmonary edema, clinically correlate. Reading Location: [id number] Brain MRI 09/09/24 21:03 IMPRESSION: The temporal lobes appear normal. No acute abnormal intracranial finding. Reading [facility] Physical Exam Const alert, oriented x3 and no apparent distress Constitutional Narrative: class III obesity General Appearance: cooperative HEENT normocephalic, head/scalp atraumatic, moist oral mucous membranes and oropharynx normal Eyes PERRL and EOMs intact bilaterally Neck no lymphadenopathy and supple Lymph Lymphatic: no lymphadenopathy noted and no lymphedema noted Resp Resp Narrative: mildly diminished breath sounds bibasally, no wheezes or crackles. On room air. Cardio regular rate, regular rhythm, S1 normal heart sound, S2 normal heart sound and no murmurs GI normal to inspection, nondistended, normoactive bowel sounds, soft to palpation, non-tender and non-distended Extremity normal capillary refill, no clubbing, cyanosis or edema and no calf tenderness General Extremity: no tenderness to palpation of joints or extremities Skin General Skin Exam: no breakdown Neuro CN's II-XII intact bilaterally, no focal motor deficits and no sensory deficits noted Motor Exam: strength 5/5 throughout and general weakness Psych thought process normal, cooperative and affect normal Appearance: appropriate Assessment & Plan Assessment/Plan (1) UTI (urinary tract infection): (2) Acute kidney injury: (3) Elevated troponin: PLAN: Plan # Acute encephalopathy * Thought to be due to UTI as he had a chronic indwelling Carcamo catheter and urinalysis did show evidence of UTI also. But was also concern for seizure and possible left lower lobe pneumonia. * Patient much more alert today. On IV ceftriaxone. Urine cultures pending. * Carcamo catheter change in the ED. * #UTI: * As above. WBCs further up to 24.9 today. However he is afebrile and is more alert today. * Was 20.8 yesterday. Blood and urine cultures pending. * Continue IV ceftriaxone. 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 * WBC continues to trend up also broaden antibiotics. * #History of seizure disorder with concern for breakthrough seizures * Patient is on Keppra. They were not sure of the dose. He was noted to have seizure-like symptoms in the senior living and had an associated postictal state. * CT brain showed no acute intracranial pathology. Continue Keppra. MRI of the brain ordered and pending. * EEG done showed no evidence of seizure and showed moderate diffuse encephalopathy. #Paroxysmal A-fib with RVR: * Heart rate is better controlled now. On metoprolol. Not on any chronic anticoagulant. * He was previously on an oral anticoagulant but this was discontinued due to significant hematuria. #CAD s/p CABG and PCI: On aspirin and statin as well as metoprolol #History of chronic orthostatic hypotension: On scheduled midodrine #Anxiety and depression: On Cymbalta, Ativan and trazodone #Hypothyroidism: On Synthroid #Type 2 diabetes mellitus with neuropathy. On insulin sliding scale. Accu- Cheks ACHS. On gabapentin #Hypertension: On metoprolol. IV hydralazine. #Hyperlipidemia: On ezetimibe and statin #Class III obesity: Complicates acute care, expected recovery and prognosis #GERD: PPI #Chronic respiratory failure: Due to COPD: Usually wears 3 L of oxygen at home. Breathing treatments bronchodilators. Not in exacerbation DVT prophylaxis: Heparin Code status: full code Charges/Coding Visit Charges Inpatient E&M: 33343 Subs Hosp L2
[2024-09-09] MEDS: Insulin Lispro 100 UNIT/ML INSULN.PEN SC ×2 (17:53→21:10)
[2024-09-09 18:51] LABS: Bedside Glucose 255 mg/dL (74-106)
[2024-09-09] MEDS: Atorvastatin Calcium 40 MG Tablet PO (20:54)
[2024-09-09] MEDS: traZODone 50 MG Tablet 75 MG PO (20:54)
[2024-09-09] MEDS: Ezetimibe 10 MG Tablet PO (20:55)
--- NOTE | 2024-09-09 21:03 | MRI_ITS ---
PROCEDURE: BRAIN WITHOUT CONTRAST 09/09/2024 REASON FOR EXAM: SEIZURES TECHNIQUE: Noncontrast brain MRI. Coronal T2 and FLAIR images were also performed through the temporal lobes given a history of seizures. COMPARISON: 09/08/[address] FINDINGS: Brain: FLAIR and T2 images demonstrate scattered foci of nonspecific increased signal in the deep and subcortical white matter. Both temporal lobes appear within normal limits. Ventricles: Normal. Major Intracranial Vessels: Major intracranial flow voids are maintained. Sinuses: Clear. Mastoids: Clear. Right ocular lens replacement. MRI/Brain without Contrast IMPRESSION: The temporal lobes appear normal. No acute abnormal intracranial finding. Reading [facility]
[2024-09-09] MEDS: Insulin Glargine-YFGN 100 UNIT/ML Pen SC (21:09)
[2024-09-09] MEDS: Ceftriaxone 2 GM in 0.9% Normal Saline (50mL MB+) 50 ML IV (22:00)
[2024-09-09 22:04] LABS: Bedside Glucose 288 mg/dL (74-106)
[2024-09-10] VITALS (8 sets, daily range): BP systolic 101–125; BP diastolic 66–83; PULSE 88–111; RESP 18–22; TEMP 36.6–36.8; O2SAT 94–97; BMI 49.4
[2024-09-10 06:39] LABS: Absolute Lymphocyte Count 0.92 X10^3/uL (0.83-4.51); Basophil# 0.05 X10^3/uL; Basophil% 0.4 % (0-1); Eosinophil# 0.32 X10^3/uL; Eosinophils% 2.8 % (0-5); Hemoglobin 8.1 g/dL (13.0-16.5); Lymphocyte # 0.92 X10^3/ul (0.83-4.51); Lymphocyte % 8.1 % (19-41); Mean Corp Hgb Conc 28.9 g/dL (32-36); Mean Corpuscular Hgb 23.1 pg (27.0-32.0); Mean Corpuscular Volume 79.8 fL (80-94); Mean Platelet Vol. 9.3 fl (6.2-12.0); Monocyte# 0.97 X10^3/uL; Monocyte% 8.6 % (0-10); NRBC Flagged by Analyzer 0 % (0-5); Neutrophil % 79.7 % (47-70); Platelet Count 159 K/mm3 (150-450); RBC Distribution Width CV 19.4 % (11.6-14.6); RBC Distribution Width SD 55.8 fl (35.1-43.9); Red Blood Count 3.51 M/mm3 (4.6-6.2); White Blood Count 11.3 K/mm3 (4.4-11.0)
[2024-09-10] MEDS: Levothyroxine 25 MCG TABLET PO (06:47)
[2024-09-10] MEDS: Insulin Lispro 100 UNIT/ML INSULN.PEN SC ×4 (06:49→21:17)
[2024-09-10] MEDS: traMADol 50 MG Tablet PO (06:53)
[2024-09-10] MEDS: Budesonide Respules 0.5 MG/2 ML AMPUL.NEB. INHALATION (07:11)
[2024-09-10 07:25] LABS: Bedside Glucose 215 mg/dL (74-106)
[2024-09-10 07:30] LABS: Anion Gap 9 (5-15); BUN 57 mg/dL (4-19); BUN/Creat Ratio 26.8 RATIO (10-20); Carbon Dioxide 28.2 mmol/L (21.0-32.0); Chloride 97 mmol/L (98-108); Creatinine, Serum 2.14 mg/dL (0.70-1.20); EST Glomerular Filtration Rate 33 (>60); Estimated Creatinine Clearance 46.82 ml/min (50-250); Glucose 214 mg/dL (70-99); Potassium 4.3 mmol/L (3.3-5.1); Sodium Level 135 mmol/L (133-145)
--- NOTE | 2024-09-10 09:48 | CASEMGMT ---
Addendum entered by Torri Escobar 09/10/24 11:03: Pt had chosen [facility]. [facility] has not made referral. DORI HERRERA updated. Torri Escobar DC Planning Asst. Original Note: Discharge Planning Note sent to [facility] that pt will not return. Asked if discharge planning has been initiated and if pt has been accepted by any agencies. Torri Escobar DC Planning Asst.
[2024-09-10] MEDS: Aspirin 81 MG TAB.CHEW PO (09:55)
[2024-09-10] MEDS: DULoxetine Hcl 60 MG Capsule PO (09:55)
[2024-09-10] MEDS: Gabapentin 300 MG Capsule 900 MG PO ×2 (09:55→21:17)
[2024-09-10] MEDS: Midodrine HCl 5 MG Tablet PO ×3 (09:55→16:42)
[2024-09-10] MEDS: Pantoprazole Sodium 40 MG Tablet PO (09:55)
[2024-09-10] MEDS: Acetaminophen 325 MG Tablet 650 MG PO (09:55)
[2024-09-10] MEDS: Polyethylene Glycol 3350 17 GM PACKET PO (09:55)
[2024-09-10] MEDS: Heparin Injection (Vial) 5,000 UNIT/ML VIAL 5000 UNIT SC ×2 (09:55→20:59)
[2024-09-10] MEDS: Menthol/Lanolin/Calamine/Znox 113 GM Tube 1 APPLIC TOPICAL ×4 (09:56→20:59)
[2024-09-10] MEDS: levETIRAcetam IV 500 MG in 0.9% Normal Saline (100mL Bag) 100 ML 420 MG IV ×2 (10:45→20:54)
--- NOTE | 2024-09-10 11:02 | CASEMGMT ---
Addendum entered by Torri Escobar 09/10/24 11:18: [facility] is able to accept for PT/OT/SN/SW. RN CM updated. Torri Escobar DC Planning Asst. Original Note: Discharge Planning Referral sent to [facility]. Torri Escobar DC Planning Asst.
[2024-09-10 11:22] LABS: Bedside Glucose 224 mg/dL (74-106)
--- NOTE | 2024-09-10 12:56 | PN_ITS ---
Subjective Subjective Patient seen and examined. He was lying comfortably in bed. He had no active complaints. Review of systems otherwise negative. He is on room air. He has been hemodynamically stable. Objective Data Objective Data Vital Signs: Vital Signs Temp Pulse Resp BP Pulse Ox O2 Del Method O2 Flow Rate 98.3 F 111 H 18 101/66 96 Room Air 2 09/10/24 09:44 09/10/24 09:44 09/10/24 09:44 09/10/24 09:56 09/10/24 09:44 09/10/24 09:47 09/09/24 03:30 FiO2 21 09/09/24 22:47 Oxygen Flow Rate (L/min) 2 Oxygen Delivery Method Room Air Weight: 326 lb 1.019 oz Body Mass Index (BMI) 49.4 Intake & Output: Intake and Output for Last 24 Hours 09/08/24 09/09/24 09/10/24 23:59 23:59 23:59 Intake Total 1833.33 / 1833.33 2937.92 / 3642.92 1260 / 1260 Output Total 400 / 400 1050 / 1650 1200 / 1200 Balance 1433.33 / 1433.33 1887.92 / 1992.92 60 / 60 Lab / Micro Data 09/10/24 06:27 09/10/24 06:27 Labs: Laboratory Results - last 24 hr 09/09/24 04:30: Diff Path Review N/A 09/09/24 17:52: POC Glucose 255 H 09/09/24 21:07: POC Glucose 288 H 09/10/24 06:27: WBC 11.3 H, RBC 3.51 L, Hgb 8.1 L, Hct 28.0 L, MCV 79.8 L, MCH 23.1 L, MCHC 28.9 L, RDW Std Deviation 55.8 H, RDW Coeff of Samuel 19.4 H, Plt Count 159, MPV 9.3, Immature Gran % (Auto) 0.400, Neut % (Auto) 79.7 H, Lymph % (Auto) 8.1 L, [place] % (Auto) 8.6, Eos % (Auto) 2.8, Baso % (Auto) 0.4, Absolute Neuts (auto) 9.0 H, Absolute Lymphs (auto) 0.92, Nucleated RBC % 0, Sodium 135, Potassium 4.3, Chloride 97 L, Carbon Dioxide 28.2, Anion Gap 9, BUN 57 H, C reatinine 2.14 H, Estim Creat Clear Calc 46.82 L, Est GFR (MDRD) Non-Af 33 L, B UN/Creatinine Ratio 26.8 H, Glucose 214 H, Calcium 8.0 09/10/24 06:46: POC Glucose 215 H 09/10/24 10:52: POC Glucose 224 H Micro: Microbiology 09/08/24 16:05 Urine, Catheterized Urine Culture - Preliminary Citrobacter freundii Staphylococcus aureus Physical Exam Const alert, oriented x3 and no apparent distress Constitutional Narrative: class III obesity General Appearance: cooperative HEENT normocephalic, head/scalp atraumatic, moist oral mucous membranes and oropharynx normal Eyes PERRL and EOMs intact bilaterally Neck no lymphadenopathy and supple Lymph Lymphatic: no lymphadenopathy noted and no lymphedema noted Resp Resp Narrative: mildly diminished breath sounds bibasally, no wheezes or crackles. On room air. Cardio regular rate, regular rhythm, S1 normal heart sound and S2 normal heart sound GI normal to inspection, nondistended, normoactive bowel sounds, soft to palpation, non-tender and non-distended Extremity normal capillary refill, no clubbing, cyanosis or edema and no calf tenderness General Extremity: no tenderness to palpation of joints or extremities Skin General Skin Exam: no breakdown Neuro CN's II-XII intact bilaterally, no focal motor deficits and no sensory deficits noted Motor Exam: strength 5/5 throughout and general weakness Psych thought process normal, cooperative and affect normal Appearance: appropriate Assessment & Plan Assessment/Plan (1) UTI (urinary tract infection): (2) Acute kidney injury: (3) Elevated troponin: PLAN: Plan # Acute encephalopathy * Thought to be due to UTI as he had a chronic indwelling Carcamo catheter and urinalysis did show evidence of UTI also. But was also concern for seizure and possible left lower lobe pneumonia. * encephalopathy has resolved. On IV ceftriaxone. Urine cultures growing Citrobacter freundii Staphylococcus aureus * Carcamo catheter change in the ED. * #UTI: * As above. WBC is down to 11.3 today. Urine cultures growing Citrobacter and Staph aureus. * Continue IV ceftriaxone. 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 * * #History of seizure disorder with concern for breakthrough seizures * Patient is on Keppra. They were not sure of the dose. He was noted to have seizure-like symptoms in the custodial and had an associated postictal state. * CT brain showed no acute intracranial pathology. Continue Keppra. MRI of the brain showed no evidence of seizure or any acute intracranial pathology * EEG done showed no evidence of seizure and showed moderate diffuse encephalopathy. #Paroxysmal A-fib with RVR: * Heart rate is better controlled now. On metoprolol. Not on any chronic anticoagulant. * He was previously on an oral anticoagulant but this was discontinued due to significant hematuria. #CAD s/p CABG and PCI: On aspirin and statin as well as metoprolol #History of chronic orthostatic hypotension: On scheduled midodrine #Anxiety and depression: On Cymbalta, Ativan and trazodone #Hypothyroidism: On Synthroid #Type 2 diabetes mellitus with neuropathy. On insulin sliding scale. Accu- Cheks ACHS. On gabapentin #Hypertension: On metoprolol. IV hydralazine. #Hyperlipidemia: On ezetimibe and statin #Class III obesity: Complicates acute care, expected recovery and prognosis #GERD: PPI #Chronic respiratory failure: Due to COPD: Usually wears 3 L of oxygen at home. Breathing treatments bronchodilators. Not in exacerbation DVT prophylaxis: Heparin Code status: full code Disposition: Will likely DC over the next 1 to 2 days with home health care. Charges/Coding Visit Charges Inpatient E&M: 62945 Subs Hosp L2
[2024-09-10 17:05] LABS: Bedside Glucose 256 mg/dL (74-106)
[2024-09-10] MEDS: Metoprolol(XL)Succ 100 MG Tablet PO (20:58)
[2024-09-10] MEDS: Atorvastatin Calcium 40 MG Tablet PO (20:58)
[2024-09-10] MEDS: Ezetimibe 10 MG Tablet PO (20:58)
[2024-09-10] MEDS: traZODone 50 MG Tablet 75 MG PO (20:58)
[2024-09-10] MEDS: Ceftriaxone 2 GM in 0.9% Normal Saline (50mL MB+) 50 ML IV (20:59)
[2024-09-10] MEDS: Insulin Glargine-YFGN 100 UNIT/ML Pen SC (21:17)
[2024-09-10 21:47] LABS: Bedside Glucose 268 mg/dL (74-106)
[2024-09-11] VITALS (8 sets, daily range): BP systolic 103–130; BP diastolic 65–89; PULSE 63–98; RESP 18–19; TEMP 35.9–36.6; O2SAT 97–100; BMI 50.3
[2024-09-11] MEDS: traMADol 50 MG Tablet PO (02:11)
[2024-09-11] MEDS: Acetaminophen 325 MG Tablet 650 MG PO (02:11)
[2024-09-11 06:20] LABS: Absolute Lymphocyte Count 0.79 X10^3/uL (0.83-4.51); Absolute Neutrophil Count 5.9 X10^3/uL (2.0-7.7); Basophil# 0.06 X10^3/uL; Basophil% 0.8 % (0-1); Eosinophil# 0.31 X10^3/uL; Hematocrit 28.3 % (40-54); Lymphocyte # 0.79 X10^3/ul (0.83-4.51); Lymphocyte % 10.3 % (19-41); Mean Corp Hgb Conc 28.3 g/dL (32-36); Mean Corpuscular Hgb 22.7 pg (27.0-32.0); Mean Corpuscular Volume 80.4 fL (80-94); Mean Platelet Vol. 9.8 fl (6.2-12.0); Monocyte% 7.8 % (0-10); NRBC Flagged by Analyzer 0 % (0-5); Neutrophil # 5.88 X10^3/uL (2.7-7.7); Neutrophil % 76.8 % (47-70); Platelet Count 157 K/mm3 (150-450); RBC Distribution Width CV 19.1 % (11.6-14.6); RBC Distribution Width SD 55.8 fl (35.1-43.9); Red Blood Count 3.52 M/mm3 (4.6-6.2); White Blood Count 7.7 K/mm3 (4.4-11.0)
[2024-09-11] MEDS: Levothyroxine 25 MCG TABLET PO (06:22)
[2024-09-11] MEDS: Insulin Lispro 100 UNIT/ML INSULN.PEN SC ×4 (06:25→20:28)
[2024-09-11 06:40] LABS: Anion Gap 8 (5-15); BUN 47 mg/dL (4-19); BUN/Creat Ratio 24.6 RATIO (10-20); Calcium,Total 8.2 mg/dL (7.6-11.0); Carbon Dioxide 26.6 mmol/L (21.0-32.0); Chloride 102 mmol/L (98-108); Creatinine, Serum 1.91 mg/dL (0.70-1.20); EST Glomerular Filtration Rate 38 (>60); Estimated Creatinine Clearance 53.01 ml/min (50-250); Glucose 265 mg/dL (70-99); Potassium 5.4 mmol/L (3.3-5.1); Sodium Level 137 mmol/L (133-145)
[2024-09-11 06:49] LABS: Bedside Glucose 229 mg/dL (74-106)
[2024-09-11] MEDS: Budesonide Respules 0.5 MG/2 ML AMPUL.NEB. INHALATION (07:15)
[2024-09-11] MEDS: Sodium Polystyrene Sulfonate 15 GM/60 ML UDC 30 GM PO (08:53)
[2024-09-11] MEDS: Midodrine HCl 5 MG Tablet PO ×3 (08:54→18:14)
[2024-09-11] MEDS: Aspirin 81 MG TAB.CHEW PO (08:54)
[2024-09-11] MEDS: Menthol/Lanolin/Calamine/Znox 113 GM Tube 1 APPLIC TOPICAL ×4 (08:54→21:03)
[2024-09-11] MEDS: Pantoprazole Sodium 40 MG Tablet PO (09:03)
[2024-09-11] MEDS: Heparin Injection (Vial) 5,000 UNIT/ML VIAL 5000 UNIT SC ×2 (09:03→20:30)
[2024-09-11] MEDS: Polyethylene Glycol 3350 17 GM PACKET PO (09:03)
[2024-09-11] MEDS: Gabapentin 300 MG Capsule 900 MG PO ×2 (09:03→21:01)
[2024-09-11] MEDS: DULoxetine Hcl 60 MG Capsule PO (09:03)
[2024-09-11] MEDS: Metoprolol(XL)Succ 100 MG Tablet PO ×2 (09:07→20:31)
[2024-09-11] MEDS: 0.9% Saline Lock 10 ML Syringe IV (09:18)
[2024-09-11] MEDS: levETIRAcetam IV 500 MG in 0.9% Normal Saline (100mL Bag) 100 ML 420 MG IV ×2 (09:18→20:35)
[2024-09-11 12:27] LABS: Bedside Glucose 223 mg/dL (74-106)
--- NOTE | 2024-09-11 13:00 | PN_ITS ---
Subjective Subjective Patient seen and examined. He had no complaints today. He had an uneventful night. Review of systems otherwise negative. His potassium is elevated at 5.4 today. However he has otherwise remained hemodynamically stable. Objective Data Objective Data Vital Signs: Vital Signs Temp Pulse Resp BP Pulse Ox O2 Del Method O2 Flow Rate 96.7 F L 94 18 112/65 98 Room Air 2 09/11/24 08:20 09/11/24 09:07 09/11/24 08:20 09/11/24 09:07 09/11/24 08:20 09/11/24 08:20 09/09/24 03:30 FiO2 21 09/11/24 02:59 Oxygen Flow Rate (L/min) 2 Oxygen Delivery Method Room Air Weight: 331 lb 12.731 oz Body Mass Index (BMI) 50.3 Intake & Output: Intake and Output for Last 24 Hours 09/09/24 09/10/24 09/11/24 23:59 23:59 23:59 Intake Total 2937.92 / 3642.92 2415 / 3215 1788.75 / 1788.75 Output Total 1050 / 1650 3500 / 6100 3200 / 3200 Balance 1887.92 / 1992.92 -1085 / -2885 -1411.25 / -1411.25 Lab / Micro Data 09/11/24 05:45 09/11/24 05:45 Labs: Laboratory Results - last 24 hr 09/10/24 16:40: POC Glucose 256 H 09/10/24 21:16: POC Glucose 268 H 09/11/24 05:45: WBC 7.7, RBC 3.52 L, Hgb 8.0 L, Hct 28.3 L, MCV 80.4, MCH 22.7 L , MCHC 28.3 L, RDW Std Deviation 55.8 H, RDW Coeff of Samuel 19.1 H, Plt Count 157, MPV 9.8, Immature Gran % (Auto) 0.300, Neut % (Auto) 76.8 H, Lymph % (Auto) 10.3 L, [place] % (Auto) 7.8, Eos % (Auto) 4.0, Baso % (Auto) 0.8, Absolute Neuts (auto) 5.9, Absolute Lymphs (auto) 0.79 L, Nucleated RBC % 0, Sodium 137, Potassium 5.4 H, Chloride 102, Carbon Dioxide 26.6, Anion Gap 8, BUN 47 H, Creatinine 1.91 H, Estim Creat Clear Calc 53.01, Est GFR (MDRD) Non-Af 38 L, BUN/Creatinine Ratio 24.6 H, Glucose 265 H, Calcium 8.2 09/11/24 06:25: POC Glucose 229 H 09/11/24 11:52: POC Glucose 223 H Micro: Microbiology 09/08/24 16:55 Blood Culture (Wb) - Anticubital Right Blood Culture - Preliminary No growth in 48 hours. 09/08/24 16:05 Urine, Catheterized Urine Culture - Final Citrobacter freundii Meth. resistant Staph. aureus Physical Exam Const alert, oriented x3 and no apparent distress Constitutional Narrative: class III obesity General Appearance: cooperative HEENT normocephalic, head/scalp atraumatic, moist oral mucous membranes and oropharynx normal Eyes PERRL and EOMs intact bilaterally Neck no lymphadenopathy and supple Lymph Lymphatic: no lymphadenopathy noted and no lymphedema noted Resp Resp Narrative: mildly diminished breath sounds bibasally, no wheezes or crackles. On room air. Cardio regular rate, regular rhythm, S1 normal heart sound, S2 normal heart sound and no murmurs GI normal to inspection, nondistended, normoactive bowel sounds, soft to palpation, non-tender and non-distended Extremity normal capillary refill, no clubbing, cyanosis or edema and no calf tenderness General Extremity: no tenderness to palpation of joints or extremities Skin General Skin Exam: no breakdown Neuro CN's II-XII intact bilaterally, no focal motor deficits and no sensory deficits noted Motor Exam: strength 5/5 throughout and general weakness Psych thought process normal, cooperative and affect normal Appearance: appropriate Assessment & Plan Assessment/Plan (1) UTI (urinary tract infection): (2) Acute kidney injury: (3) Elevated troponin: PLAN: Plan # Acute encephalopathy * Thought to be due to UTI as he had a chronic indwelling Carcamo catheter and urinalysis did show evidence of UTI also. But was also concern for seizure and possible left lower lobe pneumonia. * encephalopathy has resolved. On IV ceftriaxone. Urine cultures growing Citrobacter freundii and MRSA. These are both sensitive to nitrofurantoin. Will switch to nitrofurantoin. * Carcamo catheter change in the ED. * resolved. * #UTI: * As above. WBC is down to 11.3 today. Urine cultures growing Citrobacter and Staph aureus. * Both are sensitive to nitrofurantoin so we will switch to nitrofurantoin. Blood cultures negative. * * #History of seizure disorder with concern for breakthrough seizures * Patient is on Keppra. They were not sure of the dose. He was noted to have seizure-like symptoms in the detention and had an associated postictal state. * CT brain showed no acute intracranial pathology. Continue Keppra. MRI of the brain showed no evidence of seizure or any acute intracranial pathology * EEG done showed no evidence of seizure and showed moderate diffuse encephalopathy. #Hyperkalemia: Potassium is 5.4 today. Will give Kayexalate and trend potassium #Paroxysmal A-fib * was in RVR on admission and this has now resolved. * Heart rate is better controlled now. On metoprolol. Not on any chronic anticoagulant. * He was previously on an oral anticoagulant but this was discontinued due to significant hematuria. #CAD s/p CABG and PCI: On aspirin and statin as well as metoprolol #History of chronic orthostatic hypotension: On scheduled midodrine #Anxiety and depression: On Cymbalta, Ativan and trazodone #Hypothyroidism: On Synthroid #Type 2 diabetes mellitus with neuropathy. On insulin sliding scale. Accu- Cheks ACHS. On gabapentin #Hypertension: On metoprolol. IV hydralazine. #Hyperlipidemia: On ezetimibe and statin #Class III obesity: Complicates acute care, expected recovery and prognosis #GERD: PPI #Chronic respiratory failure * Due to COPD: Usually wears 3 L of oxygen at home. Breathing treatments bronchodilators. Not in exacerbation DVT prophylaxis: Heparin Code status: full code Disposition: for [place] home with home health care once hyperkalemia resolves. Charges/Coding Visit Charges Inpatient E&M: 41743 Subs Hosp L2
--- NOTE | 2024-09-11 16:11 | CASEMGMT ---
Addendum entered by Rut Red 09/11/24 16:31: [facility] is able to accept patient with planned start of care. DORI HERRERA updated patient. Patient denied further needs or concerns at discharge. DORI HERRERA udpated discharge plan. Original Note: DORI HERRERA in to discuss discharge with patient. DORI HERRERA updated patient regarding [facility] acceptance as that is what [facility] had said they were setting patient up with. Patient states he spoke with his daughter and they would prefer [facility]. DORI HERRERA updated patient that start of care may not be till next week, patient states he is ok with that. Patient denies further needs or concerns. DORI HERRERA called [facility] and made referral, waiting acceptance.
--- NOTE | 2024-09-11 16:52 | DS.PCM_ITS ---
Providers Date of Admission: 09/08/24 Date of Discharge: 09/12/24 Primary Care Physician: Dr. Frank Rai, DO Consultations 09/08/24 21:03 Teleneurology [Consult: Tele-Neurology] Routine Consulting Provider: [facility] Reason for Consult: breakthrough seizure EMERGENT Consult: No MD Notified: Yes Date Notified: 09/08/24 Time Notified: 23:13 Method of Notification: Answering Service Nursing Unit Staff Notify [facility] of Tele-Neurology Consult: Yes Reason For Visit: UTI, SEIZURE LIKE ACTIVITY, RENAL INSUFF, ELEVATED Diagnosis Discharge Diagnosis (1) UTI (urinary tract infection): Status: Acute Code(s): N39.0 - Urinary tract infection, site not specified (2) Acute kidney injury: Status: Acute Code(s): N17.9 - Acute kidney failure, unspecified (3) Elevated troponin: Status: Acute Code(s): R79.89 - Other specified abnormal findings of blood chemistry Plan # Acute encephalopathy * Thought to be due to UTI as he had a chronic indwelling Carcamo catheter and urinalysis did show evidence of UTI also. But was also concern for seizure and possible left lower lobe pneumonia. * encephalopathy has resolved. On IV ceftriaxone. Urine cultures growing Citrobacter freundii and MRSA. These are both sensitive to nitrofurantoin. Will switch to nitrofurantoin. * Carcamo catheter change in the ED. * resolved. * #UTI: * As above. WBC is down to 11.3 today. Urine cultures growing Citrobacter and Staph aureus. * Both are sensitive to nitrofurantoin so we will switch to nitrofurantoin. Blood cultures negative. * * #History of seizure disorder with concern for breakthrough seizures * Patient is on Keppra. They were not sure of the dose. He was noted to have seizure-like symptoms in the half-way and had an associated postictal state. * CT brain showed no acute intracranial pathology. Continue Keppra. MRI of the brain showed no evidence of seizure or any acute intracranial pathology * EEG done showed no evidence of seizure and showed moderate diffuse encephalopathy. #Hyperkalemia: Potassium is 5.4 today. Will give Kayexalate and trend potassium #Paroxysmal A-fib * was in RVR on admission and this has now resolved. * Heart rate is better controlled now. On metoprolol. Not on any chronic anticoagulant. * He was previously on an oral anticoagulant but this was discontinued due to significant hematuria. #CAD s/p CABG and PCI: On aspirin and statin as well as metoprolol #History of chronic orthostatic hypotension: On scheduled midodrine #Anxiety and depression: On Cymbalta, Ativan and trazodone #Hypothyroidism: On Synthroid #Type 2 diabetes mellitus with neuropathy. On insulin sliding scale. Accu- Cheks ACHS. On gabapentin #Hypertension: On metoprolol. IV hydralazine. #Hyperlipidemia: On ezetimibe and statin #Class III obesity: Complicates acute care, expected recovery and prognosis #GERD: PPI #Chronic respiratory failure * Due to COPD: Usually wears 3 L of oxygen at home. Breathing treatments bronchodilators. Not in exacerbation DVT prophylaxis: Heparin Code status: full code Disposition: for [place] home with home health care once hyperkalemia resolves. Medications at Discharge Home Medications ezetimibe 10 mg tablet (Zetia) 10 mg PO BID cholesterol 12/21/20 furosemide 80 mg tablet (Lasix) 80 mg PO BID diruretic 12/21/20 insulin glargine U-300 conc 300 unit/mL (3 mL) subcutaneous pen (Toujeo Max U- 300 SoloStar) 100 unit subcut QHS diabetes 12/21/20 insulin lispro 100 unit/mL subcutaneous pen (Humalog KwikPen (U-100) Insulin) See Protocol subcut TID diabetes 12/21/20 atorvastatin 40 mg tablet 40 mg PO QHS cholesterol 09/08/24 cholecalciferol (vitamin D3) 125 mcg (5,000 unit) tablet (Vitamin D3) 125 mcg PO QWEEK vitamin 09/08/24 duloxetine 60 mg capsule,delayed release (Cymbalta) 60 mg PO DAILY mental health 09/08/24 exenatide microspheres 2 mg/0.85 mL subcutaneous auto-injector (Bydureon BCise) 2 mg subcut .q sun thyroid 09/08/24 gabapentin 300 mg capsule 900 mg PO BID nerve pain 09/08/24 hydrocodone-acetaminophen 5-325mg 5mg-325mg 1 tab PO Q6H PRN pain 09/08/24 levothyroxine 25 mcg tablet 25 mcg PO DAILY thyroid 09/08/24 lorazepam 0.5 mg tablet (Ativan) 0.5 mg PO Q6H PRN anxiety 09/08/24 lubiprostone 8 mcg capsule (Amitiza) 8 mcg PO DAILY constipation 09/08/24 metoprolol succinate 100 mg tablet,extended release 24 hr 100 mg PO BID blood pressure 09/08/24 midodrine 5 mg tablet 5 mg PO TID blood pressure 09/08/24 pantoprazole 40 mg tablet,delayed release 40 mg PO DAILY reflux 09/08/24 polyethylene glycol 3350 17 gram/dose oral powder (Miralax) 17 g PO DAILY constipation 09/08/24 trazodone 150 mg tablet 75 mg PO QHS sleep 09/08/24 levetiracetam 500 mg tablet (Keppra) 500 mg PO BID #60 tabs 09/11/24 nitrofurantoin monohydrate/macrocrystals 100 mg capsule 100 mg PO BID #10 caps 09/11/24 Hospital Course Operations None Procedures Electroencephalogram Summary of Care Provided Minutes Spent on Discharge: 45 Hospital Course: Patient is a 69-year-old male with a past medical history as outlined was [facility] from [facility] on [facility]24 with a complaint of seizure- like activity. He was found generally shaking with twitching of his hands and he was also confused there was concern for seizures. He was therefore brought into the ED. On admission patient was confused and could not tell the year or month but was oriented to person and place. Urinalysis showed evidence of UTI with 100+ WBC and 2+ bacteria in the urine. CT of the brain showed no acute intracranial pathology and chest x-ray showed left lower lobe atelectasis versus pneumonia. Patient was also in atrial fibrillation but there was no evidence of ischemia by the EKG. He was admitted to be managed for acute encephalopathy in the setting of seizure disorder and UTI. He was started on IV ceftriaxone. EEG was ordered and neurology was consulted. The EEG done showed evidence of diffuse slowing but no evidence of seizures. Neurology recommended that patient should be resumed on his home dose of Keppra which was 500 mg twice daily. MRI of the brain done showed no evidence of seizure or any acute intracranial pathology. WBC trended down and normalized. Urine cultures grew Citrobacter and Staph aureus both of which was sensitive to nitrofurantoin so antibiotics were narrowed down to nitrofurantoin. Hospital course of complicated by hyperkalemia which resolved with Kayexalate. Patient ronda stable and was discharged on 09/12/2024 on p.o. nitrofurantoin for 5-day course. He is follow- up with his PCP and neurologist within 1 to 2 weeks. He was also given a prescription for his p.o. Keppra 500 mg twice daily. Patient seen and examined prior to discharge. He had no active complaints. Review of systems otherwise negative. Labs and vitals reviewed. Home medication reviewed and reconciled. Physical Exam Const alert, oriented x3 and no apparent distress Constitutional Narrative: class III obesity General Appearance: cooperative and comfortable Orientation / Consciousness: awake Exam Limitations: no limitations HEENT normocephalic, head/scalp atraumatic, hearing grossly normal bilaterally, moist oral mucous membranes and oropharynx normal Mouth: oral and palatal mucosa normal Eyes PERRL and EOMs intact bilaterally Neck no lymphadenopathy and supple Lymph Lymphatic: no lymphadenopathy noted and no lymphedema noted Resp Resp Narrative: mildly diminished breath sounds bibasally, no wheezes or crackles. On room air. Cardio regular rate, regular rhythm, S1 normal heart sound, S2 normal heart sound and no murmurs GI normal to inspection, nondistended, normoactive bowel sounds, soft to palpation, non-tender and non-distended Extremity normal capillary refill, no clubbing, cyanosis or edema and no calf tenderness General Extremity: no tenderness to palpation of joints or extremities Skin no rashes or lesions noted General Skin Exam: no breakdown Neuro oriented x3, CN's II-XII intact bilaterally, moves all extremities, no focal motor deficits and no sensory deficits noted Sensorium / Orientation: awake and alert Motor Exam: strength 5/5 throughout and general weakness Psych thought process normal, cooperative and affect normal Appearance: appropriate Weight / BMI Weight Weight: 331 lb 9.204 oz Body Mass Index (BMI) 50.4 ABG / Lab / Microbiology Data 09/12/24 04:10 09/12/24 04:10 Laboratory: Laboratory Results - last 24 hr 09/11/24 16:35: Sodium 137, Potassium 5.5 H, Chloride 101, Carbon Dioxide 28.8, Anion Gap 8, BUN 42 H, Creatinine 1.75 H, Estim Creat Clear Calc 57.85, Est GFR (MDRD) Non-Af 42 L, BUN/Creatinine Ratio 24.1 H, Glucose 204 H, Calcium 8.4 09/11/24 18:13: POC Glucose 202 H 09/11/24 20:20: POC Glucose 222 H 09/12/24 04:10: WBC 7.9, RBC 3.56 L, Hgb 8.1 L, Hct 28.2 L, MCV 79.2 L, MCH 22.8 L, MCHC 28.7 L, RDW Std Deviation 54.7 H, RDW Coeff of Samuel 19.0 H, Plt Count 164, MPV 9.3, Immature Gran % (Auto) 0.500, Neut % (Auto) 74.3 H, Lymph % (Auto) 11.3 L, [place] % (Auto) 8.7, Eos % (Auto) 4.3, Baso % (Auto) 0.9, Absolute Neuts (auto) 5.8, Absolute Lymphs (auto) 0.89, Nucleated RBC % 0, Sodium 135, Potassium 4.6, Chloride 102, Carbon Dioxide 23.9, Anion Gap 10, BUN 39 H, C reatinine 1.82 H, Estim Creat Clear Calc 55.60, Est GFR (MDRD) Non-Af 40 L, B UN/Creatinine Ratio 21.2 H, Glucose 232 H, Calcium 7.9 09/12/24 12:15: POC Glucose 192 H Microbiology: Microbiology 09/08/24 16:55 Blood Culture (Wb) - Anticubital Right Blood Culture - Preliminary No growth in 48 hours. 09/08/24 16:05 Urine, Catheterized Urine Culture - Final Citrobacter freundii Meth. resistant Staph. aureus D/C Instructions Discharge Diet: Low fat / Low cholesterol Discharge Activity: Return to Normal Activity Weight Bearing Status: Weight bearing as tolerated Call your doctor if you observe: Fever of 101 or Higher, Shortness of breath, Dizziness, Swelling in the ankles and Chest pain DC O2, CPAP, BIPAP Needs Home O2 Discharge instructions: No DC home with Oxygen: No Meaningful Use Info Meaningful Use Meaningful Use Diagnoses (Choose all that apply): None applicable Ischemic Stroke Statin Dosing Therapy Reference: STATIN DOSE THERAPY REFERENCE: * Patients > 75 years receive moderate or high dose statin therapy. * Patients 75 years or YOUNGER should receive HIGH intensity statin dose unless contraindicated. You will be required to document reason for non-treatment if statin daily dose does not meet guidelines. HIGH DOSE STATIN THERAPY DAILY Atorvastatin > than or = to 40 mg Rosuvastatin > than or = to 20 mg Amlodipine + Atorvastatin > than or = to 2.5/40 mg Ezetimibe + Simvastatin 10/80 mg Simvastatin 80mg Discharge Plan Admission Admit Date/Time: 09/08/24 18:50 Primary Reason for Your Visit: SHERYL, UTI Attending Provider: Henny Santiago Primary Care Provider: Frank Rai Consulting Providers: Savita Sousa; Makenzie Degroot; Loretta Davis; Juan Daniel Patel; Jose Zamarripa; Jose Kramer; SPENCER TALBOT; Xi Vera; Amanda Shepard; Sukhjinder Frost; Deanna Guerrero; Sanjay Li; Clarice Oneill; Sheridan Ballard; Justus Gonzales; Rebekah Talavera; Ruy Saldana; Joseph Holbrook; Delgado Norris; Jenny Huntley; Vickie Dan; Abner Nava; Eleni Sanchez; José Miguel Manley; Vandana Lance; Belkys Treadwell; Amie Piedra Instructions Patient Instructions: UTI Ch Discharge Orders/Prescriptions Prescriptions: New nitrofurantoin monohyd/m-cryst 100 mg Capsule 100 mg PO BID Qty: 10 0RF levetiracetam [Keppra] 500 mg tablet 500 mg PO BID Qty: 60 2RF Continued furosemide [Lasix] 80 mg tablet 80 mg PO BID Patient Comments: take 1 tablet by mouth twice a day insulin lispro [Humalog KwikPen Insulin] 100 unit/mL insulin pen See Protocol SUBCUT TID Protocol: 1. Sliding Scale Insulin Low Dosing Condition: 150-224 mg/dl = 1 unit Condition: 225-299 mg/dl = 2 units Condition: 300-374 mg/dl = 3 units Condition: 375-499 mg/dl = 4 units Condition: Greater than 449 call physician Protocol Text: - Use for Total Daily Dose of Insulin 15-27 units - Thin, elderly, renal patients LOW DOSING ALGORITHM Patient Comments: inject 16 to 26 units subcutaneously three times a day before meals ACCORDING TO SLIDING SCALE ezetimibe [Zetia] 10 mg tablet 10 mg PO BID Patient Comments: take 1 tablet by mouth at bedtime insulin glargine U-300 conc [Toujeo Max U-300 SoloStar] 300 unit/mL (3 mL) insulin pen 100 unit SUBCUT QHS atorvastatin 40 mg tablet 40 mg PO QHS Bydureon BCise 2 mg/0.85 mL auto-injector 2 mg subcut .q wed duloxetine [Cymbalta] 60 mg capsule,delayed release(DR/EC) 60 mg PO DAILY gabapentin 300 mg capsule 900 mg PO BID hydrocodone-acetaminophen 5-325 mg tablet 1 tab PO Q6H PRN (Reason: pain) levothyroxine 25 mcg tablet 25 mcg PO DAILY lorazepam [Ativan] 0.5 mg tablet 0.5 mg PO Q6H PRN (Reason: anxiety) lubiprostone [Amitiza] 8 mcg capsule 8 mcg PO DAILY metoprolol succinate 100 mg tablet extended release 24 hr 100 mg PO BID midodrine 5 mg tablet 5 mg PO TID Rx Instructions: do not give last dose of day after 6PM or within 4 hrs of bedtime pantoprazole 40 mg tablet,delayed release (DR/EC) 40 mg PO DAILY polyethylene glycol 3350 [Miralax] 17 gram/dose powder 17 g PO DAILY trazodone 150 mg tablet 75 mg PO QHS cholecalciferol (vitamin D3) [Vitamin D3] 125 mcg (5,000 unit) tablet 125 mcg PO QWEEK Discontinued metoprolol succinate 25 mg tablet extended release 24 hr 25 mg PO DAILY Patient Comments: take 1 tablet by mouth every morning tramadol 50 mg tablet 50 mg PO Q8H PRN (Reason: pain) Referrals / Follow Up: Frank Rai DO [Primary Care Provider] - 09/19/24 2:00 pm Disposition Disposition (needs filled in before D/C Order can be placed): Home Health Service Charges/Coding Visit Charges Inpatient E&M: 11169 Disch Hosp >30min
[2024-09-11 17:43] LABS: Anion Gap 8 (5-15); BUN 42 mg/dL (4-19); BUN/Creat Ratio 24.1 RATIO (10-20); Calcium,Total 8.4 mg/dL (7.6-11.0); Carbon Dioxide 28.8 mmol/L (21.0-32.0); Chloride 101 mmol/L (98-108); Creatinine, Serum 1.75 mg/dL (0.70-1.20); EST Glomerular Filtration Rate 42 (>60); Estimated Creatinine Clearance 57.85 ml/min (50-250); Glucose 204 mg/dL (70-99); Potassium 5.5 mmol/L (3.3-5.1); Sodium Level 137 mmol/L (133-145)
[2024-09-11 18:36] LABS: Bedside Glucose 202 mg/dL (74-106)
[2024-09-11] MEDS: Insulin Glargine-YFGN 100 UNIT/ML Pen SC (20:24)
[2024-09-11] MEDS: traZODone 50 MG Tablet 75 MG PO (20:30)
[2024-09-11] MEDS: Ezetimibe 10 MG Tablet PO (20:38)
[2024-09-11] MEDS: Atorvastatin Calcium 40 MG Tablet PO (20:38)
[2024-09-11] MEDS: Nitrofurantoin Macrocrystals 100 MG Capsule PO (21:02)
[2024-09-11 22:46] LABS: Bedside Glucose 222 mg/dL (74-106)
[2024-09-12] VITALS: PULSE 84
[2024-09-12] MEDS: Sodium Polystyrene Sulfonate 15 GM/60 ML UDC PO (00:52)
[2024-09-12 01:03] VITALS: BP 114/73; PULSE 98; RESP 20; TEMP 36.1; O2SAT 97
[2024-09-12 03:15] VITALS: BMI 50.4
[2024-09-12 04:49] LABS: Absolute Lymphocyte Count 0.89 X10^3/uL (0.83-4.51); Absolute Neutrophil Count 5.8 X10^3/uL (2.0-7.7); Basophil# 0.07 X10^3/uL; Basophil% 0.9 % (0-1); Eosinophil# 0.34 X10^3/uL; Eosinophils% 4.3 % (0-5); Hematocrit 28.2 % (40-54); Hemoglobin 8.1 g/dL (13.0-16.5); Lymphocyte # 0.89 X10^3/ul (0.83-4.51); Lymphocyte % 11.3 % (19-41); Mean Corp Hgb Conc 28.7 g/dL (32-36); Mean Corpuscular Hgb 22.8 pg (27.0-32.0); Mean Corpuscular Volume 79.2 fL (80-94); Mean Platelet Vol. 9.3 fl (6.2-12.0); Monocyte# 0.68 X10^3/uL; Monocyte% 8.7 % (0-10); NRBC Flagged by Analyzer 0 % (0-5); Neutrophil # 5.84 X10^3/uL (2.7-7.7); Neutrophil % 74.3 % (47-70); Platelet Count 164 K/mm3 (150-450); RBC Distribution Width SD 54.7 fl (35.1-43.9); Red Blood Count 3.56 M/mm3 (4.6-6.2); White Blood Count 7.9 K/mm3 (4.4-11.0)
[2024-09-12] MEDS: Levothyroxine 25 MCG TABLET PO (06:33)
[2024-09-12 07:02] VITALS: PULSE 88; RESP 17
[2024-09-12] MEDS: Budesonide Respules 0.5 MG/2 ML AMPUL.NEB. INHALATION (07:02)
[2024-09-12 07:06] LABS: Anion Gap 10 (5-15); BUN 39 mg/dL (4-19); BUN/Creat Ratio 21.2 RATIO (10-20); Calcium,Total 7.9 mg/dL (7.6-11.0); Carbon Dioxide 23.9 mmol/L (21.0-32.0); Chloride 102 mmol/L (98-108); Creatinine, Serum 1.82 mg/dL (0.70-1.20); EST Glomerular Filtration Rate 40 (>60); Glucose 232 mg/dL (70-99); Potassium 4.6 mmol/L (3.3-5.1); Sodium Level 135 mmol/L (133-145)
[2024-09-12 08:48] VITALS: BP 144/84; PULSE 118; RESP 16; TEMP 36.2; O2SAT 97
[2024-09-12] MEDS: Insulin Lispro 100 UNIT/ML INSULN.PEN SC ×2 (08:56→13:30)
[2024-09-12] MEDS: Midodrine HCl 5 MG Tablet PO ×2 (08:57→13:31)
[2024-09-12] MEDS: Gabapentin 300 MG Capsule 900 MG PO (08:57)
[2024-09-12] MEDS: Acetaminophen 325 MG Tablet 650 MG PO (08:57)
[2024-09-12] MEDS: Aspirin 81 MG TAB.CHEW PO (08:57)
[2024-09-12] MEDS: Heparin Injection (Vial) 5,000 UNIT/ML VIAL 5000 UNIT SC (08:58)
[2024-09-12] MEDS: Menthol/Lanolin/Calamine/Znox 113 GM Tube 1 APPLIC TOPICAL (08:58)
[2024-09-12] MEDS: DULoxetine Hcl 60 MG Capsule PO (08:58)
[2024-09-12] MEDS: Nitrofurantoin Macrocrystals 100 MG Capsule PO (08:59)
[2024-09-12] MEDS: levETIRAcetam IV 500 MG in 0.9% Normal Saline (100mL Bag) 100 ML 420 MG IV (08:59)
[2024-09-12] MEDS: Polyethylene Glycol 3350 17 GM PACKET PO (08:59)
[2024-09-12 09:00] VITALS: PULSE 118
[2024-09-12] MEDS: Pantoprazole Sodium 40 MG Tablet PO (09:00)
[2024-09-12] MEDS: Metoprolol(XL)Succ 100 MG Tablet PO (09:00)
--- NOTE | 2024-09-12 11:54 | CASEMGMT ---
Patient has order for discharge. [facility] has been setup for patient. RN CM in to discuss needs at discharge, daughter at bedside. Patient denies further needs or concerns. Daughter inquired about bipap at discharge. RN CM instructed daughter to follow up with PCP or mill helper to arrange for outpatient sleep study. Per daughter, patient has appt September 25 with pulmonology. Patient and daughter had no further questions or concerns.
--- NOTE | 2024-09-12 12:10 | PHA.DC.MC.R ---
Pharmacy [facility] has performed discharge medication reconciliation and counseling for this patient. The patient's discharge medication list was reviewed for discrepancies and discrepancies were resolved. The patient was counseled on the following discharge medications and changes in medications for homegoing were reviewed. The Reason for Use, instructions for use, and potential side effects were reviewed for all new medications. The patient's questions regarding all of their medications were answered. 1. Nitrofurantoin 100 mg PO BID x 5 days 2. Levetiracetam 500 mg PO BID The patient was able to verbally demonstrate an understanding of their discharge medications. Medications at Discharge Home Medications ezetimibe 10 mg tablet (Zetia) 10 mg PO BID cholesterol 12/21/20 furosemide 80 mg tablet (Lasix) 80 mg PO BID diruretic 12/21/20 insulin glargine U-300 conc 300 unit/mL (3 mL) subcutaneous pen (Toujeo Max U-300 SoloStar) 100 unit subcut QHS diabetes 12/21/20 insulin lispro 100 unit/mL subcutaneous pen (Humalog KwikPen (U-100) Insulin) See Protocol subcut TID diabetes 12/21/20 atorvastatin 40 mg tablet 40 mg PO QHS cholesterol 09/08/24 cholecalciferol (vitamin D3) 125 mcg (5,000 unit) tablet (Vitamin D3) 125 mcg PO QWEEK vitamin 09/08/24 duloxetine 60 mg capsule,delayed release (Cymbalta) 60 mg PO DAILY mental health 09/08/24 exenatide microspheres 2 mg/0.85 mL subcutaneous auto-injector (Bydureon BCise) 2 mg subcut .q sun thyroid 09/08/24 gabapentin 300 mg capsule 900 mg PO BID nerve pain 09/08/24 hydrocodone-acetaminophen 5-325mg 5mg-325mg 1 tab PO Q6H PRN pain 09/08/24 levothyroxine 25 mcg tablet 25 mcg PO DAILY thyroid 09/08/24 lorazepam 0.5 mg tablet (Ativan) 0.5 mg PO Q6H PRN anxiety 09/08/24 lubiprostone 8 mcg capsule (Amitiza) 8 mcg PO DAILY constipation 09/08/24 metoprolol succinate 100 mg tablet,extended release 24 hr 100 mg PO BID blood pressure 09/08/24 midodrine 5 mg tablet 5 mg PO TID blood pressure 09/08/24 pantoprazole 40 mg tablet,delayed release 40 mg PO DAILY reflux 09/08/24 polyethylene glycol 3350 17 gram/dose oral powder (Miralax) 17 g PO DAILY constipation 09/08/24 trazodone 150 mg tablet 75 mg PO QHS sleep 09/08/24 levetiracetam 500 mg tablet (Keppra) 500 mg PO BID #60 tabs 09/11/24 nitrofurantoin monohydrate/macrocrystals 100 mg capsule 100 mg PO BID #10 caps 09/11/24
[2024-09-12 12:35] LABS: Bedside Glucose 192 mg/dL (74-106)
[2024-09-12 13:14] VITALS: BP 144/88; PULSE 108; RESP 16; TEMP 36.7; O2SAT 94
[2024-09-12 16:01] LABS: Bedside Glucose 272 mg/dL (74-106)
== END 2024-09-12 14:54 | disposition home health service (06) | DRG 699 ==
LOC: ED 19:23 → PCU 20:33
PROVIDERS: Admitting Provider Family Medicine; Emergency Provider Emergency Medicine; Visit Provider Student in an Organized Health Care Education/Training Program
DX: T83.511A Infection and inflammatory reaction due to indwelling urethral catheter, initial encounter (principal); J96.12 Chronic respiratory failure with hypercapnia; E66.2 Morbid (severe) obesity with alveolar hypoventilation; J96.11 Chronic respiratory failure with hypoxia; G93.40 Encephalopathy, unspecified; I13.0 Hypertensive heart and chronic kidney disease with heart failure and stage 1 through stage 4 chronic kidney disease, or unspecified chronic kidney disease; Z68.43 Body mass index [BMI] 50.0-59.9, adult; N17.9 Acute kidney failure, unspecified; J98.11 Atelectasis; B96.5 Pseudomonas (aeruginosa) (mallei) (pseudomallei) as the cause of diseases classified elsewhere; E11.22 Type 2 diabetes mellitus with diabetic chronic kidney disease; B95.62 Methicillin resistant Staphylococcus aureus infection as the cause of diseases classified elsewhere; I50.9 Heart failure, unspecified; G40.909 Epilepsy, unspecified, not intractable, without status epilepticus; I48.0 Paroxysmal atrial fibrillation; J44.9 Chronic obstructive pulmonary disease, unspecified; N18.30 Chronic kidney disease, stage 3 unspecified; F32.A Depression, unspecified; E03.9 Hypothyroidism, unspecified; K21.9 Gastro-esophageal reflux disease without esophagitis; I25.10 Atherosclerotic heart disease of native coronary artery without angina pectoris; E11.40 Type 2 diabetes mellitus with diabetic neuropathy, unspecified; E78.5 Hyperlipidemia, unspecified; Z79.4 Long term (current) use of insulin; F41.9 Anxiety disorder, unspecified; E87.5 Hyperkalemia; I95.1 Orthostatic hypotension; E11.65 Type 2 diabetes mellitus with hyperglycemia; K59.09 Other constipation; N39.0 Urinary tract infection, site not specified; Z95.5 Presence of coronary angioplasty implant and graft; Z87.891 Personal history of nicotine dependence; Z79.82 Long term (current) use of aspirin; R79.89 Other specified abnormal findings of blood chemistry; Z83.3 Family history of diabetes mellitus; E66.813 Obesity, class 3; Z99.89 Dependence on other enabling machines and devices; Z79.899 Other long term (current) drug therapy; Z79.02 Long term (current) use of antithrombotics/antiplatelets; Z79.890 Hormone replacement therapy; Z96.0 Presence of urogenital implants; B96.89 Other specified bacterial agents as the cause of diseases classified elsewhere; Y73.2 Prosthetic and other implants, materials and accessory gastroenterology and urology devices associated with adverse incidents
CPT/HCPCS: 36415; 36600; 70450; 70551; 71045; 71046; 80048; 80053; 80061; 80307; 81001; 82803; 82962; 83605; 83735; 84439; 84443; 84484; 85025; 85610; 85730; 87040; 87077; 87086; 87088; 87186; 93005; 94002; 94003; 94640; 94668; 95819; 97162; 97166; 97530; 97535; 99285; A4216; J0696

== ENCOUNTER → 2024-10-29 | Outpatient (CLI) | payer MEDICARE, MEDICAID, SELFPAY ==
[2024-10-29 15:55] LABS: Color, Urine Yellow (Yellow); Glucose, Dipstick Normal (Normal); Ketone-Dipstick Negative (Negative); Leukocyte Esterase-Dipstick 500 /ul (Negative); Nitrite-Dipstick Negative (Negative); Occult Blood-Urine 250 /ul (Negative); Protein-Dipstick 100 mg/dl (Negative); Specific Gravity, Urine 1.015 (1.002-1.030); Urine Bilirubin Dipstick Negative (Negative); Urine Clarity Cloudy (Clear); Urine Urobilinogen Normal (Normal)
== END | disposition home or self-care (01) ==
LOC: LABSPEC 13:22
DX: N39.0 Urinary tract infection, site not specified (principal); R30.9 Painful micturition, unspecified
CPT/HCPCS: 81002; 87077; 87086; 87088; 87186